=== PATIENT | female | born 1945 | race African-American/Black ===

== ENCOUNTER 2019-02-06 17:18 | Inpatient (IN) | payer MEDICARE, MEDICAID ==
[~2019-02-06 17:18] MED LIST: ISOVUE-370 76%-LOCM 1 ML ONE
[2019-02-06 17:35] LABS: #Basophils 0.1 thou/uL (0.0-0.2); #Eosinphils 0.2 thou/uL (0.0-0.7); #Lymphocytes 2.2 thou/uL (1.20-3.40); #Monocytes 0.3 thou/uL (0.11-0.59); #Neutrophils 2.5 thou/uL (1.40-6.50); %Basophils 1.2 % (0.0-1.0); %Eosinophils 3.6 % (0.0-10.0); %Monocytes 5.2 % (0.0-10.0); Hemoglobin 13.1 g/dL (12.0-16.0); Mean Corpuscular HGB CONC 31.7 g/dL (32.0-36.0); Mean Corpuscular Hemoglobin 29.1 pg (27.0-31.0); Mean Corpuscular Volume 91.9 fL (78.0-98.0); Mean Platelet Volume 8.3 fL (7.4-10.4); Platelet Count 226 thou/uL (130-400); Red Blood Cell (RBC) Count 4.49 mill/uL (4.20-5.40); White Blood Cell (WBC) Count 5.2 thou/uL (4.8-10.8)
[2019-02-06 17:41] LABS: INR-International Normal Ratio 0.9; PTT 27.8 SEC (22.9-36.1); Prothrombin Time 12.4 SEC (12.0-14.7)
--- NOTE | 2019-02-06 17:44 | CT ---
CT BRAIN WITHOUT CONTRAST: HISTORY:Stroke alert, dementia and hypertension, increased confusion, slurred speech COMPARISON:None FINDINGS: There are foci of decreased attenuation in the periventricular white matter, consistent with chronic small vessel ischemic disease. No evidence of acute infarct, hemorrhage, midline shift or abnormal extra-axial fluid collections is seen. The ventricular size is appropriate and the basilar cisterns are patent. The bony calvarium is intact. A cavum septum pellucidum et vergae is present. The visualized paranasal sinuses and mastoid air cells are well aerated. IMPRESSION: No CT evidence of acute intracranial process. Discussed over the telephone with ER physician Dr. Garza at 5:40 PM
[2019-02-06 17:48] LABS: ALT (SGPT) 21 U/L (8-55); AST (SGOT) 23 U/L (5-34); Albumin 4.1 g/dL (3.4-4.8); Alkaline Phosphatase 78 U/L (40-150); Anion Gap 12 mmol/L (10-20); BUN (Urea Nitrogen) 23 mg/dL (9.8-20.1); Bilirubin, Total 0.4 mg/dL (0.2-1.2); CK (CPK) 73 U/L (29-168); Calc. Creatinine Clearance 0 mL/min (70-130); Calcium 9.9 mg/dL (7.8-10.44); Carbon Dioxide 27 mmol/L (23-31); Chloride 107 mmol/L (98-107); Estimated GFR-MDRD 76; Globulin 3.1 g/dL (2.4-3.5); Glucose 77 mg/dL (83-110); Potassium 3.9 mmol/L (3.5-5.1); Protein, Total 7.2 g/dL (6.0-8.3); Sodium 142 mmol/L (136-145)
[2019-02-06 18:34] LABS: Bilirubin Negative (Negative); Blood, Urine Negative (Negative); Glucose, Urine (Dipstick) Negative (Negative); Leukocyte Negative (Negative); Nitrite Negative (Negative); Protein, Urine (Dipstick) Negative (Neg-Trace); Urobilinogen 0.2 mg/dL (Less than 2)
[2019-02-06 18:36] LABS: Clarity Hazy (Clear)
[2019-02-06 18:38] LABS: Bacteria/HPF 4+ HPF (None Seen); RBC/HPF 0-3 HPF (0-3); Squamous Epithelial Greater than 50 HPF (0-3)
--- NOTE | 2019-02-06 18:38 | RAD ---
PORTABLE CHEST: Date: 02-06-19 Time: 6:13 p.m. History: Slurred speech, Difficulty swallowing. FINDINGS: There is a left sided pacemaker device. The heart size is normal. No confluent areas of consolidation , pneumothoraces or pleural effusions are seen. IMPRESSION: No acute process. POS: [facility]
[2019-02-06] MEDS ORDERED: Aspirin Chewable 81 MG TAB ONE ×2 (19:40→19:41)
[2019-02-06] MEDS ORDERED: Aspirin 325 MG TAB ONE (19:40)
--- NOTE | 2019-02-06 20:05 | CT ---
CTA HEAD WITH IV CONTRAST AND 3D POST PROCESSING: CTA NECK WITH IV CONTRAST AND 3D POST PROCESSING: HISTORY: Stroke alert. Dementia. Hypertension. Increased confusion. Slurred speech. FINDINGS: Vascular calcifications are present. There is high-grade stenosis (about 80%) at the origin of the l eft ICA. There is mild stenosis (up to 30%) at the origin of the right ICA. There is good flow in t he intracranial vertebrobasilar and intercarotid artery systems, despite the presence of atherosclero tic plaque. No major branch occlusion or aneurysm formation is seen. IMPRESSION: High-grade stenosis (about 80%) in the left proximal internal carotid artery. Discussed over the telephone with ER physician, Dr. Garza, at 6:20 p.m. CODE YING POS: KENDRA
[2019-02-06 22:42] VITALS: BMI 29.1
[2019-02-07] MEDS ORDERED: Ondansetron ODT 4 MG TAB PO PRN (09:05)
[2019-02-07] MEDS ORDERED: Ondansetron PF 4 MG/2 ML Vial IVP PRN (09:05)
[2019-02-07] MEDS ORDERED: Acetaminophen 325 MG TAB PO PRN (09:05)
[2019-02-07] MEDS ORDERED: Calcium Carbonate 500 MG ChewTAB PO PRN (09:05)
[2019-02-07] MEDS ORDERED: Bisacodyl 10 MG SUPP PR PRN (09:05)
[2019-02-07] MEDS ORDERED: hydrALAZINE 20 MG/ML VIAL SLOW IVP PRN (09:10)
[2019-02-07] MEDS ORDERED: Enalaprilat Dihydrate 1.25 MG/ML VIAL SLOW IVP PRN (09:11)
--- NOTE | 2019-02-07 09:30 | HP ---
PRIMARY CARE: Dr. Mills. PRIMARY INTERNATIONAL TRADE TEACHER: Dr. Hays at [facility]. CHIEF COMPLAINT: Stroke-like symptoms. HISTORY OF PRESENT ILLNESS: The patient is a 73-year-old female with sick sinus syndrome status post MRI and compatible pacemaker, presented to the emergency room with the above complaints. Please note that not much information is available from the patient. History is obtained from the patient's daughter, Ms. Bryant as well as previous records were reviewed. The patient was brought into the emergency room with increased confusion, lethargy as well as facial droop. She was different from her baseline. Speech was slurred. Saliva was drooping from the angle of the mouth. The daughter did report focal weakness. However, her gait was unstable. She normally uses a walker at home. She does not take any antiplatelet agent on a daily basis. No recent fall, fever, chills, chest pain, shortness of breath, palpitations, headache, or seizures reported. In the emergency room, her temperature was 97.5, respiration of 16, pulse rate of 81, with a blood pressure of 134/85, and O2 saturation 96% on room air. CT scan of the brain was negative for acute findings. CT of the [place] of the head and neck showed 80% stenosis of the left proximal internal carotid artery. She received 325 mg aspirin in the emergency room. Her NIH score at this time is 8. PAST MEDICAL HISTORY: 1. Symptomatic bradycardia/sick sinus syndrome status post pacemaker. The original pacemaker was placed in 1999 at [facility]. The generator was replaced in November of [address] Hays at [facility]. 2. Recent hospitalization for choledocholithiasis requiring ERCP and cholecystectomy during the same admission when the pacemaker was replaced. It was found that the pacemaker was end of life when she was admitted for cholelithiasis. 3. Hypertension. 4. Anxiety, depression, and schizophrenia. PAST SURGICAL HISTORY: 1. Dual-chamber pacemaker, [employer]. 2. Laparoscopic cholecystectomy. 3. ERCP. 4. Hysterectomy. 5. Hernia repairs. SOCIAL HISTORY: The patient currently lives at home with her daughter. She is . No smoking, alcohol, or drug use. FAMILY HISTORY: Negative for premature coronary artery disease. REVIEW OF SYSTEMS: Cannot be reliably obtained from the patient due to current cognitive status. ALLERGIES: NO KNOWN DRUG ALLERGIES. CURRENT HOME MEDICATIONS: Amlodipine 5 mg daily, Benadryl 25 at bedtime, lisinopril 20 mg daily, and Claritin 10 mg daily. PHYSICAL EXAMINATION: VITAL SIGNS: In the emergency room, temperature 97.5, respirations 16, pulse 81, blood pressure of 134/85, and O2 saturation 96% on room air. GENERAL: 73-year-old female with stroke-like symptoms. She continues to have slurriness of speech along with facial droop. She is generally weak. She follows commands to some extent. HEENT: Head, atraumatic and normocephalic. Sclerae anicteric. Moist mucous membranes. No oral lesion. Facial droop noted. NECK: Supple. No JVD. There is questionable carotid bruit on the left. LUNGS: Clear to auscultation bilaterally. No wheezing, rales, or rhonchi. HEART: S1, S2 present. Regular rate and rhythm. No rubs or gallops. Pacemaker noted. ABDOMEN: Soft, nontender. Bowel sounds present. No rebound or guarding. EXTREMITIES: No edema or calf tenderness. NEUROLOGY: Cranial nerves 2 through 12 were normal on examination except for facial droop. There is diminished sensation on the right. She had weakness in bilateral lower extremity up to 4/5. Gait was not assessed. Reflexes were equivocal. PSYCHIATRY: As discussed above. SKIN: Warm and dry. LYMPH: No palpable lymph nodes in the neck. PERIPHERAL/VASCULAR: Radial pulses palpable bilaterally. MUSCULOSKELETAL: No joint swelling or tenderness. LABORATORY FINDINGS: WBC 5.2, hemoglobin 13.1, hematocrit 41.2, and platelet 226. PT, INR, PTT in normal range. Sodium 142, potassium 3.9, chloride 107, bicarb 27, BUN 23, and creatinine 0.27. Urinalysis showed 7 to 10 wbc's with 4+ bacteria, 15 of ketones. IMAGING STUDIES: Chest x-ray by my review was negative for infiltrate. CT scan of the brain by my review as discussed above. CT of the [place] as discussed above. EKG by my review showed paced rhythm. IMPRESSION: 1. Acute cerebrovascular accident, probably in the left MCA distribution. 2. Sick sinus syndrome, status post MRI compatible dual-chamber pacemaker. 3. Hypertension. 4. Anxiety. 5. Depression, mild, stable. 6. Toxic metabolic encephalopathy secondary to #1. 7. High-grade stenosis of the left internal carotid artery. 8. Suspected urinary tract infection. 9. Chronic kidney disease stage 2 with mild prerenal azotemia. 10. Dysarthria probably secondary to #1. PLAN: The patient will be monitored in the stroke unit. She will require 2 to 3 days for stabilization. She will require a stroke workup including MRI and echocardiogram. Neurology will be consulted. She has a MRI compatible dual-chamber pacemaker. We will start empiric antibiotics for UTI. Gentle IV hydration. We will hold antihypertensives for now for permissive hypertension. Stroke team consultation. Fasting lipid profile in a.m. Plan of care was discussed with the patient in detail. The plan was discussed with the daughter over the phone. CODE STATUS: Full code. Surrogate decision maker, the patient makes her own decision with the help of her daughter and sister. Job ID: [id number]
[2019-02-07] MEDS: Dextrose 5 %-0.45 % NaCl 1,000 ML IV SCH (11:44)
[2019-02-07] MEDS: cefTRIAXone\\ROCEPHIN 1 GM in Sodium Chloride 0.9% 100 ML IVPB SCH (11:45)
--- NOTE | 2019-02-07 15:07 | MRI ---
BRAIN MRI WITHOUT CONTRAST: Date: 02/07/19 INDICATION: Stroke. Slurred speech, confusion. Reference made to head CT from previous day. FINDINGS: There is a small focus of restricted diffusion involving the right thalamus, as well as the posterior right lentiform nucleus. There are also subtle areas of restriction seen within the bilateral centru m semiovale and gimenez radiata within deep white matter, which are superimposed upon moderate to dixie re chronic ischemic disease of the cerebral white matter. There are numerous remote cavitary lacunar infarctions seen bilaterally within the supratentorial brain. There is mild global atrophy. There is a cavum septum pellucidum et vergae. Skull base flow-voids are maintained. IMPRESSION: 1. Scattered foci of acute ischemia involving right side deep palomo nuclei, and bilateral deep white matter. The distribution of findings may be related to hypoperfusion or embolic phenomenon. 2. Extensive chronic microvascular ischemic disease. POS: [facility]
[2019-02-07] MEDS: Enoxaparin Sodium 40 MG/0.4 ML SYRINGE SC SCH (21:19)
[2019-02-07] MEDS: Famotidine 20 MG TAB PO SCH (21:20)
[2019-02-07] MEDS: Senokot S 8.6-50 MG TAB PO SCH (21:20)
[2019-02-07] MEDS: Atorvastatin Calcium 40 MG TAB PO SCH (21:21)
--- NOTE | 2019-02-07 22:53 | CON ---
DATE OF CONSULTATION: 02/07/2019 CONSULTING PHYSICIAN: Hospitalist Service. IMPRESSION: Extensive microvascular disease with secondary right-sided weakness and mild dementia with agitation. PLAN: 1. Start aspirin. 2. Echocardiogram. 3. Lipitor as ordered. 4. Seroquel 50 mg at night. HISTORY OF PRESENT ILLNESS: Ms. Morrison is a 73-year-old black female who reportedly developed some right-sided weakness back in November. She was seen at [facility] and evaluated. No diagnosis of stroke was made. She has been living at home with her daughter. Over the last week, she has noticed she has gotten a bit more agitated. She has been having some hallucinations. She has a history of paranoid schizophrenia. She got up yesterday and was having more difficulty walking than normal. She seemed a bit more confused. She was also having a bit more trouble with her speech. She was brought in for evaluation. MRI of the brain shows some scattered areas of microvascular ischemic change involving the right deep palomo nuclei and bilateral deep white matter regions. CT angiogram showed an 80% left internal carotid artery stenosis. CT of the brain did not show any hemorrhage. Her lab work was all unremarkable. Her vital signs have been stable and she has been afebrile. PAST HISTORY: Hypertension. ALLERGIES: NONE REPORTED. SOCIAL HISTORY: No tobacco or alcohol use. FAMILY HISTORY: Noncontributory. REVIEW OF SYSTEMS: Ten-system review of systems is otherwise negative. PHYSICAL EXAMINATION: GENERAL: She is a well-nourished, elderly woman, sitting up in bed, in no distress. VITAL SIGNS: Stable. She is afebrile. HEENT: Pupils are equal and reactive. Conjunctivae clear. Oropharynx clear. NECK: Supple. No lymphadenopathy. EXTREMITIES: No cyanosis or edema. NEUROLOGIC: She was awake and relatively cooperative. She had a little difficulty with comprehension and did not always follow commands appropriately. Her speech was quite low in volume, but seemed to be fluent. She had a right facial droop. There was some subtle right upper extremity weakness compared to the left. She had antigravity strength bilaterally. Plantar responses were downgoing. No abnormal movements were seen. Gait was not tested, but reportedly she can walk with the use of a walker. SUMMARY: This is a 73-year-old woman who shows some evidence of multifocal small ischemic injury, likely related to primary vasculopathy with multiple subclinical strokes occurring. I agree with antiplatelet therapy and a statin. Her echocardiogram is pending. There is a significantly reduced ejection fraction below 35%. I would consider anticoagulation. Job ID: [id number]
[2019-02-08] MEDS: Dextrose 5 %-0.45 % NaCl 1,000 ML IV SCH ×3 (01:50→18:51)
[2019-02-08 05:58] LABS: Phosphorus 4.2 mg/dL (2.3-4.7)
[2019-02-08 05:59] LABS: ALT (SGPT) 16 U/L (8-55); AST (SGOT) 18 U/L (5-34); Albumin 3.5 g/dL (3.4-4.8); Alkaline Phosphatase 66 U/L (40-150); Anion Gap 9 mmol/L (10-20); BUN (Urea Nitrogen) 16 mg/dL (9.8-20.1); Bilirubin, Total 0.4 mg/dL (0.2-1.2); Calc. Creatinine Clearance 98 mL/min (70-130); Calcium 9.8 mg/dL (7.8-10.44); Carbon Dioxide 31 mmol/L (23-31); Cardiac Risk 3.5 (Less than 4.5); Chloride 105 mmol/L (98-107); Cholesterol 185 mg/dl (< 200 Desired); Estimated GFR-MDRD Greater than 90; Globulin 2.7 g/dL (2.4-3.5); Glucose 97 mg/dL (83-110); HDL Cholesterol 53 mg/dL (>60 Neg Risk); LDL Cholesterol, Calculated 118 mg/dL; Magnesium 1.8 mg/dL (1.6-2.6); Potassium 3.8 mmol/L (3.5-5.1); Protein, Total 6.2 g/dL (6.0-8.3); Sodium 141 mmol/L (136-145); Triglycerides 69 mg/dL (Less than 150)
[2019-02-08 06:14] LABS: Eosinophils 3 % (0-10); Hemoglobin 11.7 g/dL (12.0-16.0); Lymphocytes 49 % (21-51); MDiff Complete? YES; Mean Corpuscular HGB CONC 31.6 g/dL (32.0-36.0); Mean Corpuscular Hemoglobin 29.5 pg (27.0-31.0); Mean Corpuscular Volume 93.4 fL (78.0-98.0); Monocytes 16 % (0-10); Neutrophil 29 % (42-75); Platelet Count 194 thou/uL (130-400); RBC Distribution Width 11.9 % (11.5-14.5); Reactive Lymphocytes 3 % (0-10); Red Blood Cell (RBC) Count 3.99 mill/uL (4.20-5.40); White Blood Cell (WBC) Count 3.9 thou/uL (4.8-10.8)
[2019-02-08 06:31] LABS: Folate (Folic Acid) 13.6 ng/mL (7.0-31.4)
[2019-02-08] MEDS ORDERED: Cyanocobalamin 1000 MCG/ML VIAL IM SCH (07:45)
[2019-02-08] MEDS: Multivit, Therapeutic 1 TAB PO SCH (08:42)
[2019-02-08] MEDS: Cyanocobalamin (Vitamin B-12) 1,000 MCG TAB PO SCH (08:42)
[2019-02-08] MEDS: Aspirin 325 mg Enteric Coated Tablet PO SCH (08:42)
[2019-02-08] MEDS: Famotidine 20 MG TAB PO SCH ×2 (08:42→22:29)
[2019-02-08] MEDS: Senokot S 8.6-50 MG TAB PO SCH ×2 (08:42→22:29)
[2019-02-08] MEDS ORDERED: Amlodipine 5 MG TAB PO SCH (10:45)
[2019-02-08] MEDS ORDERED: Lisinopril 5 MG TAB PO SCH (11:00)
[2019-02-08] MEDS: cefTRIAXone\\ROCEPHIN 1 GM in Sodium Chloride 0.9% 100 ML IVPB SCH (11:24)
[2019-02-08] MEDS: hydrALAZINE 20 MG/ML VIAL SLOW IVP PRN ×2 (11:25→11:37)
[2019-02-08] MEDS ORDERED: Enalaprilat Dihydrate 1.25 MG/ML VIAL SLOW IVP PRN (17:58)
--- NOTE | 2019-02-08 19:51 | PRG ---
DATE OF SERVICE: 02/08/2019 SUBJECTIVE: A 73-year-old female with sick sinus syndrome, status post pacemaker, hypertension, and schizophrenia, was brought in to the hospital with stroke-like symptoms. She underwent an MRI of the brain that showed scattered foci of acute ischemia involving the right side deep palomo nuclei and bilateral deep white matter. It also showed extensive chronic microvascular ischemic changes. She continues to have intermittent confusion. No new focal deficit reported. No chest pain, shortness of breath, or palpitations. She was started on Seroquel last night. REVIEW OF SYSTEMS: Cannot be reliably obtained from the patient due to current cognitive status. CURRENT MEDICATIONS: Reviewed. The patient has been started on aspirin. She is also on ceftriaxone for possible UTI . PHYSICAL EXAMINATION: VITAL SIGNS: Temperature 98.6, pulse 61, respirations of 16, blood pressure of 154/72, and O2 saturation 99% on room air. Intake of 1570, output 1100. GENERAL: A 73-year-old female in no apparent distress. Mentation slightly better. HEENT: Head, atraumatic and normocephalic. Sclerae anicteric. NECK: Supple. No JVD. No carotid bruit. LUNGS: Clear to auscultation bilaterally. No wheezing, rales, or rhonchi. HEART: S1, S2 present. Regular rate and rhythm. No rubs or gallops. ABDOMEN: Soft, nontender. Bowel sounds present. NEUROLOGY: Examination is unchanged. No new focal deficit. PSYCHIATRY: The patient is alert, awake, and pleasant at this time. She gets confused intermittently. LABORATORY FINDINGS: Vitamin B12 130, folic acid 13.6. Electrolytes in normal range. WBC 3.9 with hemoglobin 11.7. Urine culture showed greater than 100,000 mixed colonies. Echocardiogram showed ejection fraction 55% to 60% with mild tricuspid regurgitation, and trace mitral regurgitation. Next, telemetry monitoring by my review showed sinus rhythm. IMPRESSION: 1. Acute cerebrovascular accident involving the right side, right side deep palomo matter as well as bilateral deep white matter. 2. Extensive chronic microvascular ischemic changes. 3. Toxic metabolic encephalopathy number. 4. Urinary tract infection. 5. Hypertension. 6. Anxiety. 7. Depression, mild, stable. 8. Chronic kidney disease stage 2 with mild dehydration. 9. Dysarthria secondary to #1. 10. High-grade stenosis of the left internal carotid artery. Family declining any form of surgical intervention at this time. 11. Mild chronic anemia. 12. Dementia. 13. Vitamin B12 deficiency. PLAN: The will remain in the stroke unit. We will continue ceftriaxone for UTI. Continue aspirin. We will reduce IV fluid to 50. We will restart amlodipine as well as lisinopril at low dose. The patient has been started on Seroquel per Neurology. We will start vitamin B12 supplementation. Again, the family is declining any form of intervention for high-grade stenosis in the left proximal internal carotid artery. long term placement at discharge. Continue neuro checks. Plan was discussed with the daughter, An at the bedside, she stated understanding. Job ID: [id number]
[2019-02-08] MEDS: Atorvastatin Calcium 40 MG TAB PO SCH (22:29)
[2019-02-08] MEDS: Lisinopril 5 MG TAB PO SCH (22:29)
[2019-02-08] MEDS: Enoxaparin Sodium 40 MG/0.4 ML SYRINGE SC SCH (22:30)
[2019-02-09] MEDS: Cyanocobalamin (Vitamin B-12) 1,000 MCG TAB PO SCH (09:15)
[2019-02-09] MEDS: Aspirin 325 mg Enteric Coated Tablet PO SCH (09:15)
[2019-02-09] MEDS: Famotidine 20 MG TAB PO SCH ×2 (09:16→21:26)
[2019-02-09] MEDS: Amlodipine 5 MG TAB PO SCH (09:16)
[2019-02-09] MEDS: Senokot S 8.6-50 MG TAB PO SCH ×2 (09:16→21:26)
[2019-02-09] MEDS: Lisinopril 5 MG TAB PO SCH ×2 (09:18→21:26)
[2019-02-09] MEDS: Multivit, Therapeutic 1 TAB PO SCH (09:19)
[2019-02-09] MEDS: cefTRIAXone\\ROCEPHIN 1 GM in Sodium Chloride 0.9% 100 ML IVPB SCH (12:00)
--- NOTE | 2019-02-09 13:46 | PDOC.PN ---
- Subjective Encounter Start Date: 02/09/19 Encounter Start Time: 08:00 Patient seen and examined for Acute CVA. More calmer today. No new focal deficits. No new complaints. No overnight events - Objective Resuscitation Status - Order Detail: 02/07/19 09:05 Resuscitation Status Routine Resuscitation Status: FULL: Full Resuscitation MAR Reviewed: Yes Vital Signs & Weight: Vital Signs (12 hours) Temp Pulse Pulse Pulse Resp BP BP 02/09/19 11:35 98.5 F 60 18 02/09/19 10:29 62 60 152/97 H 02/09/19 09:18 60 161/91 H 02/09/19 09:16 60 161/91 H 02/09/19 08:00 02/09/19 07:48 97.7 F 60 18 02/09/19 04:00 97.9 F 60 16 BP BP Pulse Ox 02/09/19 11:35 152/97 H 95 02/09/19 10:29 162/85 H 02/09/19 09:18 02/09/19 09:16 02/09/19 08:00 95 02/09/19 07:48 160/103 H 100 02/09/19 04:00 161/88 H 98 Weight Admit Weight 175 lb 4.8 oz Weight 175 lb 4.8 oz I&O: 02/08/19 02/09/19 02/10/19 06:59 06:59 06:59 Intake Total 845 1810 Output Total 2100 Balance 845 -290 Result Diagrams: 02/08/19 05:12 02/08/19 05:12 EKG Reviewed by me: Yes (Tele SR) Phys Exam - Physical Examination Constitutional: NAD Respiratory: no wheezing, no rhonchi Cardiovascular: RRR, no rub Gastrointestinal: soft, non-tender, positive bowel sounds Musculoskeletal: no edema Neurological: moves all 4 limbs no new focal findings Dx/Plan - Plan DVT proph w/lovenox, DVT proph w/SCDs IMPRESSION: 1. Acute CVA involving the right side, right side deep palomo matter as well as bilateral deep white matter. 2. Extensive chronic microvascular ischemic changes. 3. Toxic metabolic encephalopathy number. 4. Urinary tract infection. 5. Vitamin B12 deficiency. 6. Anxiety. 7. Depression, mild, stable. 8. Chronic kidney disease stage 2 with mild dehydration. 9. Dysarthria secondary to #1. 10. High-grade stenosis of the left internal carotid artery. Family declining any form of surgical intervention at this time. 11. Mild chronic anemia. 12. Dementia. 13. Hypertension. PLAN: Continue IV ceftriaxone for UTI. Continue aspirin. Cont IV fluids due to poor appetite. Cont current dose of Amlodipine and lisinopril at low dose. On Seroquel per Neurology. Cont vitamin B12 supplementation. alf placement at discharge. DC in 24-48 hr if stable Review of Systems - Review of Systems Respiratory: negative: Cough, Dry, Shortness of Breath, Hemoptysis, SOB with Excertion, Pleuritic Pain, Sputum, Wheezing Cardiovascular: negative: chest pain, palpitations, orthopnea, paroxysmal nocturnal dyspnea, edema, light headedness, other Gastrointestinal: negative: Nausea, Vomiting, Abdominal Pain, Diarrhea, Constipation, Melena, Hematochezia, Other - Medications/Allergies Allergies/Adverse Reactions: Allergies Allergy/AdvReac Type Severity Reaction Status Date / Time No Known Allergies Allergy Verified 02/07/19 00:00 Medications: Current Medications Acetaminophen (Tylenol) 650 mg PO Q4H PRN PRN Reason: Headache/Fever/Mild Pain (1-3) Last Admin: 02/09/19 12:04 Dose: 650 mg Amlodipine Besylate (Norvasc) 5 mg PO DAILY [facility] Last Admin: 02/09/19 09:16 Dose: 5 mg Aspirin (Ecotrin) 325 mg PO DAILY [facility] Last Admin: 02/09/19 09:15 Dose: 325 mg Atorvastatin Calcium (Lipitor) 40 mg PO HS [facility] Last Admin: 02/08/19 22:29 Dose: 40 mg Bisacodyl (Dulcolax) 10 mg [place] DAILYPRN PRN PRN Reason: Constipation Calcium Carbonate (Tums) 1,000 mg PO Q4H PRN PRN Reason: Heartburn or Indigestion Last Admin: 02/08/19 11:24 Dose: 1,000 mg Cyanocobalamin (Vitamin B-12) 1,000 mcg PO DAILY [facility] Last Admin: 02/09/19 09:15 Dose: 1,000 mcg Enalaprilat (Vasotec) 1.25 mg SLOW IVP Q6H PRN PRN Reason: SBP Greater Than 180 Enoxaparin Sodium (Lovenox) 40 mg SC 2100 [facility] Last Admin: 02/08/19 22:30 Dose: 40 mg Famotidine (Pepcid) 20 mg PO BID [facility] Last Admin: 02/09/19 09:16 Dose: 20 mg Hydralazine HCl (Apresoline) 5 mg SLOW IVP Q4H PRN PRN Reason: SBP Greater Than 180 Last Admin: 02/08/19 08:57 Dose: 5 mg Hydralazine HCl (Apresoline) 10 mg SLOW IVP Q4H PRN PRN Reason: BP > 220/110 Last Admin: 02/08/19 11:37 Dose: 10 mg Ceftriaxone Sodium 1 gm/ (Sodium Chloride) 100 mls @ 200 mls/hr IVPB 1100 [facility] Last Admin: 02/09/19 12:00 Dose: 100 mls Dextrose/Sodium Chloride (D5 1/2 Ns) 1,000 mls @ 50 mls/hr IV .Q20H [facility] Last Admin: 02/08/19 18:51 Dose: 1,000 mls Lisinopril (Zestril) 5 mg PO BID [facility] Last Admin: 02/09/19 09:18 Dose: 5 mg Multivitamins (Theragran) 1 tab PO DAILY [facility] Last Admin: 02/09/19 09:19 Dose: 1 tab Ondansetron HCl (Zofran Odt) 4 mg PO Q6H PRN PRN Reason: Nausea/Vomiting Ondansetron HCl (Zofran) 4 mg IVP Q6H PRN PRN Reason: Nausea/Vomiting Quetiapine Fumarate (Seroquel) 50 mg PO QPM [facility] Last Admin: 02/08/19 22:27 Dose: 50 mg Senna/Docusate Sodium (Senokot S) 1 tab PO BID [facility] Last Admin: 02/09/19 09:16 Dose: 1 tab Sodium Chloride (Flush - Normal Saline) 10 ml IVF PRN PRN PRN Reason: Saline Flush
[2019-02-09] MEDS: Dextrose 5 %-0.45 % NaCl 1,000 ML IV SCH (14:27)
[2019-02-09] MEDS: Enoxaparin Sodium 40 MG/0.4 ML SYRINGE SC SCH (21:24)
[2019-02-09] MEDS: Atorvastatin Calcium 40 MG TAB PO SCH (21:25)
[2019-02-10] MEDS: Aspirin 325 mg Enteric Coated Tablet PO SCH (08:28)
[2019-02-10] MEDS: Famotidine 20 MG TAB PO SCH (08:28)
[2019-02-10] MEDS: Amlodipine 5 MG TAB PO SCH (08:28)
[2019-02-10] MEDS: Multivit, Therapeutic 1 TAB PO SCH (08:28)
[2019-02-10] MEDS: Senokot S 8.6-50 MG TAB PO SCH (08:28)
[2019-02-10] MEDS: Cyanocobalamin (Vitamin B-12) 1,000 MCG TAB PO SCH (08:28)
[2019-02-10] MEDS: Lisinopril 5 MG TAB PO SCH (08:29)
[2019-02-10] MEDS: Dextrose 5 %-0.45 % NaCl 1,000 ML IV SCH (10:48)
--- NOTE | 2019-02-10 11:20 | DIS ---
DATE OF ADMISSION: 02/07/2019 DATE OF DISCHARGE: 02/10/2019 DISCHARGE DISPOSITION: To [facility] facility. DISCHARGE MEDICATIONS: 1. Aspirin 325 mg daily. 2. Lipitor 40 mg at bedtime. 3. Seroquel 50 mg q.p.m. 4. Multivitamin 1 tablet daily. 5. Lisinopril 10 mg b.i.d., hold for systolic blood pressure less than 140. 6. Vitamin B12 of 1000 mcg daily. 7. Amlodipine 5 mg daily, hold for systolic blood pressure less than 130. 8. Tylenol as needed. 9. Claritin 10 mg daily. 10. Omnicef 300 mg twice a day for next 3 days. INPATIENT COMMUNITY ASSOCIATE: Neurology, Dr. Coronado. The patient was seen and examined on the day of discharge. Denies any new complaints. No new focal deficit. BRIEF HOSPITAL COURSE: The patient is a 73-year-old female with sick sinus syndrome, status post pacemaker, presented to the emergency room with stroke-like symptoms. CT scan of the brain in the emergency room showed chronic small-vessel ischemic changes. CT of the head and neck showed high-grade stenosis about 80% in the left proximal internal carotid artery. She was monitored in the stroke unit. Her MRI of the brain showed scattered foci of acute ischemia involving the right side deep palomo nuclei and bilateral deep white matter with extensive chronic microvascular ischemic changes. Echocardiogram showed left ventricular ejection fraction 55% to 60% with mild tricuspid regurgitation and trace mitral regurgitation. She was also found to have vitamin B12 deficiency with vitamin B12 level of 130. A folic acid was normal. A fasting lipid profile showed cholesterol 185, LDL 118, HDL of 53 with triglycerides of 69. She has been started on Seroquel 50 mg at bedtime by Neurology. The patient has been cleared by Neurology for discharge. FINAL DIAGNOSES: 1. Acute cerebrovascular accident as discussed above. 2. Vitamin B12 deficiency. 3. Toxic metabolic encephalopathy secondary to acute cerebrovascular accident. 4. Sick sinus syndrome, status post MRI, compatible dual-chamber pacemaker. 5. Hypertension. 6. Anxiety. 7. Depression, mild, stable. 8. High-grade stenosis of the left internal carotid artery. The patient and the family declined any form of surgical intervention for now. They were advised to follow up with Dr. Meadows as outpatient. 9. Urinary tract infection. Urine culture showed greater than 100,000 mixed skin and enteric samantha. 10. Chronic kidney disease stage 2 with mild prerenal azotemia. 11. Dysarthria. Plan was discussed with the patient and the family at the bedside. They stated understanding. Total time coordinating the discharge of this patient was 36 minutes. Job ID: [id number]
[2019-02-10] MEDS: cefTRIAXone\\ROCEPHIN 1 GM in Sodium Chloride 0.9% 100 ML IVPB SCH (12:18)
[2019-02-10 12:28] VITALS: BP 151/85; TEMP 98.2
== END 2019-02-10 13:08 | disposition swing bed, planned readmission (89) | DRG 64 ==
LOC: ERS 17:18 → 2SE 19:29 → OBSVTOIN 02-07 09:05
PROVIDERS: ADMIT Internal Medicine; ATTEND Internal Medicine
DX: I63.232 Cerebral infarction due to unspecified occlusion or stenosis of left carotid arteries (principal); G92 Toxic encephalopathy; N39.0 Urinary tract infection, site not specified; G81.91 Hemiplegia, unspecified affecting right dominant side; F03.91 Unspecified dementia, unspecified severity, with behavioral disturbance; F20.0 Paranoid schizophrenia; I49.5 Sick sinus syndrome; Z95.0 Presence of cardiac pacemaker; I08.1 Rheumatic disorders of both mitral and tricuspid valves; E53.8 Deficiency of other specified B group vitamins; F41.9 Anxiety disorder, unspecified; F32.9 Major depressive disorder, single episode, unspecified; I12.9 Hypertensive chronic kidney disease with stage 1 through stage 4 chronic kidney disease, or unspecified chronic kidney disease; N18.2 Chronic kidney disease, stage 2 (mild); R47.1 Dysarthria and anarthria; D63.1 Anemia in chronic kidney disease; Z91.81 History of falling; R29.708 NIHSS score 8; R47.81 Slurred speech; Z85.038 Personal history of other malignant neoplasm of large intestine; H26.9 Unspecified cataract; Z90.49 Acquired absence of other specified parts of digestive tract; Z90.710 Acquired absence of both cervix and uterus; R29.810 Facial weakness; R26.9 Unspecified abnormalities of gait and mobility; E86.0 Dehydration
CPT/HCPCS: 36415; 36416; 51701; 70450; 70496; 70498; 70551; 71045; 80053; 80061; 81003; 82550; 82607; 82746; 83735; 84100; 84484; 85025; 85610; 85730; 87086; 93005; 93306; A4353; J0360; J0696; J1650; J3490; Q9966

== ENCOUNTER 2019-11-27 21:01 | Inpatient (IN) | payer MEDICARE, MEDICAID ==
[2019-11-27] MEDS ORDERED: Labetalol HCl 100 MG/20 ML VIAL SLOW IVP PRN (23:32)
[2019-11-27] MEDS ORDERED: Acetaminophen 325 MG TAB PO PRN (23:41)
[2019-11-27] MEDS ORDERED: Acetaminophen 650 MG Suppository PR PRN (23:41)
[2019-11-27] MEDS ORDERED: Sodium Chloride 0.9% 1,000 ML IV SCH (23:45)
[2019-11-27] MEDS ORDERED: Aspirin 81 mg Enteric Coated Tablet PO SCH (23:59)
--- NOTE | 2019-11-27 23:59 | PDOC.HHP ---
Hospitalist HPI - History of Present Illness Right weakness, Slurred speech History of Present Illness: PCP: Dr. Mills The patient was alert and oriented to name and was able to follow commands. The H&P was taken from her daughter/caregiver, Marisabel via phone. The patient is a 74/F with PMH significant for HTN, HLD, CVA w/ right deficits, bradycardia w/ PM, schizophrenia that presents to the ER for the above complaint. The patient's daughter reports the patient has been intermittent spells of "not acting herself" since wednesday night. She reports that the patient was not eating, taking her medications by mouth starting wednesday evening. She also needed more assistance to stand and ambulate, which is "not normal for her". Wednesday, she reports that the patient was back to baseline. This repeated on wednesday evening and carried into Wednesday, so they decided to take the patient to the ER for evaluation. Denies any recent trauma or falls. Denies any fever or chills. Denies any changes to medications. The patient has history of illicit drug use, however, she has been caring for her mother "22/02" and does not think she could have accessed any drugs. Daughter reports history of significant carotid stenosis, declined surgery related to "only a 50% chance it works". ED Course: [facility] 16 EKG paced [address] brain no acute changes CXR negative for acute process Na 151 K 3.0 Glucose 118 LA 1.6 WBC 6.3 Hgb 12.8 Hct 41.8 UA unremarkable Given: ASA 300mg [place] Potassium 40mEQ po Allergies: NKDA Home Meds: 1. Atorvastatin 40mg po q hs 2. Amlodipine 5mg po q hs 3. Furosemide 20mg po q am 4. Quetiapine 100mg po q hs 5. Lisinopril 10mg po BID 6. 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 (right deficits) Psych: reports: Schizophrenia - Past Surgical History Past Surgical History: reports: Cholecystectomy, Hysterectomy, Hernia Repair, Other (Pacemaker for bradycardia) - Family History Family History: reports: cardiac disorder, cerebrovascular accident - Social History Smoking Status: Former smoker Alcohol: reports: None Drugs: reports: Other (former marijuana, cocaine) Living Situation: With Family Occupation: Lives in [place] with daughter Activity level: uses cane/walker - Exam General Appearance: NAD, awake alert General - other findings: follows commands, oriented to person ENT: normocephalic atraumatic Neck: supple, no JVD Heart: RRR, no murmur, no gallops, no rubs, normal peripheral pulses Respiratory: CTAB, no wheezes, no rales, no ronchi, no tachypnea Gastrointestinal: soft, non-tender, non-distended, normal bowel sounds, no guarding, no rigidity Extremities: no cyanosis, no edema Skin: no rashes Neurological: facial droop Neurological - other findings: right facial droop, RLE weakness 2/5 powerscale, slurred speech Psychiatric: flat affect Hospitalist Results - Labs Lab results: Troponin I 0.036 ng/mL (< 0.028) H 11/27/19 21:27 - EKG Interpretation EKG: Paced 62 bpm - Radiology Interpretation CT scan - head Status: report reviewed by me Chest x-ray Status: report reviewed by me Hospitalist H&P A/P - Problem (1) Right sided weakness Code(s): R53.1 - WEAKNESS Status: Acute Assessment and Plan: Admit to stroke unit, observation status Expected stay less than 2 midnights Daughter reports hx of significant carotid stenosis Obtain MRI brain, CTA neck and head, echocardiogram Check FLP, folate/B12, mag level and trend troponins Consult PT/OT/SENIOR NET PROGRAMMER Continue home dosing of ASA 81mg BID (2) Slurred speech Code(s): R47.81 - SLURRED SPEECH Status: Acute Assessment and Plan: Obtain MRI brain, CTA neck and head, echocardiogram Check FLP, folate/B12, mag level and trend troponins Consult PT/OT/SENIOR NET PROGRAMMER Continue home dosing of ASA 81mg BID (3) Dehydration Code(s): E86.0 - DEHYDRATION Status: Acute Assessment and Plan: Decreased oral intake for past several days per family Will gentle IV hydration Recheck BMP in am (4) Hypokalemia Code(s): E87.6 - HYPOKALEMIA Status: Acute Assessment and Plan: Mild 3.0 Given 40 mEq Will check mag level Will recheck in am (5) Hypernatremia Code(s): E87.0 - HYPEROSMOLALITY AND HYPERNATREMIA Status: Acute Assessment and Plan: Na 151 Will give gentle IV hydration Will recheck in am (6) HTN (hypertension) Code(s): I10 - ESSENTIAL (PRIMARY) HYPERTENSION Status: Chronic Assessment and Plan: Will start prn medications Permissive HTN Will hold home dose lisinopril and Amlodipine for now (7) HLD (hyperlipidemia) Code(s): E78.5 - HYPERLIPIDEMIA, UNSPECIFIED Status: Acute Assessment and Plan: Will restart atorvastatin home mediatioin pending SENIOR NET PROGRAMMER clearance. (8) History of CVA (cerebrovascular accident) Code(s): Z86.73 - PRSNL HX OF TIA (TIA), AND CEREB INFRC W/O RESID DEFICITS Status: Chronic Assessment and Plan: Right sided deficits, able to ambulate with standby assist as baseline - Plan Plan: Consult PT and OT Pepcid GI prophylaxis LMWH DVT prophylaxis Full Code JF is Marisabel at [phone] Solis.
[2019-11-28] MEDS ORDERED: Magnesium 2 GM/50 ML 2 GM in Premix Bag 1 BAG IVPB SCH (01:00)
[2019-11-28 01:12] LABS: Troponin I 0.039 ng/mL (< 0.028)
[2019-11-28 01:42] VITALS: BMI 27.2
[2019-11-28 04:05] LABS: #Basophils 0.1 thou/uL (0.0-0.2); #Eosinphils 0.2 thou/uL (0.0-0.7); #Lymphocytes 2.2 thou/uL (1.20-3.40); #Monocytes 0.4 thou/uL (0.11-0.59); #Neutrophils 3.3 thou/uL (1.40-6.50); %Basophils 0.9 % (0.0-1.0); %Eosinophils 3.2 % (0.0-10.0); %Lymphocytes 35.8 % (21.0-51.0); %Monocytes 6.5 % (0.0-10.0); %Neutrophils 53.6 % (42.0-75.0); Mean Corpuscular HGB CONC 31.6 g/dL (32.0-36.0); Mean Corpuscular Hemoglobin 31.2 pg (27.0-31.0); Mean Corpuscular Volume 98.7 fL (78.0-98.0); Mean Platelet Volume 9.2 fL (7.4-10.4); Platelet Count 236 thou/uL (130-400); RBC Distribution Width 11.1 % (11.5-14.5); Red Blood Cell (RBC) Count 4.16 mill/uL (4.20-5.40); White Blood Cell (WBC) Count 6.2 thou/uL (4.8-10.8)
[2019-11-28 04:20] LABS: Anion Gap 15 mmol/L (10-20); BUN (Urea Nitrogen) 23 mg/dL (9.8-20.1); Calc. Creatinine Clearance 88 mL/min (70-130); Calcium 9.5 mg/dL (7.8-10.44); Carbon Dioxide 27 mmol/L (23-31); Cardiac Risk 3.8 (Less than 4.5); Chloride 112 mmol/L (98-107); Cholesterol 144 mg/dl (< 200 Desired); Estimated GFR-MDRD Greater than 90; Glucose 88 mg/dL (83-110); HDL Cholesterol 38 mg/dL (>60 Neg Risk); LDL Cholesterol, Calculated 88 mg/dL; Magnesium 1.9 mg/dL (1.6-2.6); Potassium 3.2 mmol/L (3.5-5.1); Sodium 151 mmol/L (136-145); Triglycerides 92 mg/dL (Less than 150)
[2019-11-28 04:23] LABS: Troponin I 0.037 ng/mL (< 0.028)
[2019-11-28] MEDS ORDERED: Dextrose 5 %-0.45 % NaCl 1,000 ML IV SCH (06:15)
[2019-11-28] MEDS: Enoxaparin Sodium 40 MG/0.4 ML SYRINGE SC SCH (08:52)
[2019-11-28] MEDS: Famotidine 20 MG TAB PO SCH ×2 (08:52→21:45)
[2019-11-28] MEDS: Famotidine/PF 20 mg/2ml Vial SLOW IVP SCH ×2 (08:53→21:39)
[2019-11-28] MEDS: Aspirin 81 mg Enteric Coated Tablet PO SCH ×2 (10:44→21:39)
--- NOTE | 2019-11-28 12:20 | PDOC.HOSPP ---
- Subjective Encounter Date: 11/28/19 Encounter Time: 12:18 Subjective: Ms. Morrison was seen today in follow-up of right sided weakness and hypernatremia. She is still confused, and does not follow commands well. she mainly stares at you, she will squeeze your hand on commands,and answer some questions with a few words. - Objective Vital Signs & Weight: Vital Signs (12 hours) Temp Pulse Resp BP Pulse Ox 11/28/19 11:07 97.5 F L 60 18 148/69 H 100 11/28/19 07:08 98.6 F 61 14 141/68 H 100 11/28/19 04:00 98.7 F 60 18 143/65 H 99 11/28/19 00:53 98.7 F 61 18 185/81 H 100 Weight Weight 169 lb I&O: 11/27/19 11/28/19 11/29/19 06:59 06:59 06:59 Intake Total 10 Output Total 0 Balance 10 Result Diagrams: 11/28/19 03:52 11/28/19 03:52 Hospitalist ROS - Medication Medications: Active Medications Generic Name Dose Route Start Last Admin Trade Name Freq PRN Reason Stop Dose Admin Aspirin 81 mg 11/28/19 09:00 11/28/19 10:44 Ecotrin PO 81 mg BID YAIR Administration Enoxaparin Sodium 40 mg 11/28/19 09:00 11/28/19 08:52 Lovenox SC 40 mg 0900 YAIR Administration Famotidine 20 mg 11/28/19 09:00 11/28/19 08:53 Pepcid SLOW IVP 20 mg Q12HR YAIR Administration Famotidine 20 mg 11/28/19 09:00 11/28/19 08:52 Pepcid PO Not Given BID YAIR Sodium Chloride 1,000 mls @ 75 mls/hr 11/27/19 23:45 11/28/19 08:57 Normal Saline 0.9% IV 11/28/19 22:19 Not Given .[id number] YAIR Dextrose/Sodium Chloride 1,000 mls @ 50 mls/hr 11/28/19 06:15 11/28/19 06:25 D5 1/2 Ns IV 1,000 mls .Q20H YAIR Administration - Exam Eye: PERRL, anicteric sclera Heart: RRR, no murmur, no gallops, no rubs, normal peripheral pulses Respiratory: CTAB, no wheezes, no rales, no ronchi, normal chest expansion, no tachypnea, normal percussion Gastrointestinal: soft, non-tender, non-distended, normal bowel sounds, no palpable masses, no hepatomegaly Extremities: no cyanosis, no clubbing, no edema Hosp A/P (1) History of CVA (cerebrovascular accident) Code(s): Z86.73 - PRSNL HX OF TIA (TIA), AND CEREB INFRC W/O RESID DEFICITS Status: Chronic (2) Hypernatremia Code(s): E87.0 - HYPEROSMOLALITY AND HYPERNATREMIA Status: Acute (3) Right sided weakness Code(s): R53.1 - WEAKNESS Status: Acute (4) Slurred speech Code(s): R47.81 - SLURRED SPEECH Status: Acute (5) HTN (hypertension) Code(s): I10 - ESSENTIAL (PRIMARY) HYPERTENSION Status: Chronic - Plan * Metabolic encephalopathy- likely from hypernatremia, and possible CVA * Continue to hydrate, and will re-check her serum sodium later this afternoon * Right sided-weakness- await MRI, Echo and CTA * HTN- will re-start Amlodipine, but hold Lisinopril
[2019-11-28 13:46] LABS: Anion Gap 16 mmol/L (10-20); BUN (Urea Nitrogen) 16 mg/dL (9.8-20.1); Calc. Creatinine Clearance 95 mL/min (70-130); Calcium 9.2 mg/dL (7.8-10.44); Carbon Dioxide 23 mmol/L (23-31); Chloride 113 mmol/L (98-107); Estimated GFR-MDRD Greater than 90; Glucose 104 mg/dL (83-110); Potassium 3.6 mmol/L (3.5-5.1); Sodium 148 mmol/L (136-145)
--- NOTE | 2019-11-28 13:51 | CT ---
EXAM: CT ANGIOGRAM OF THE HEAD AND NECK: INDICATION: Unknown right-sided weakness. COMPARISON: 02/06/2019. TECHNIQUE: CT angiogram of the head and neck are performed in the axial plane. Three-dimensional reformatted irina ges are submitted for interpretation. FINDINGS: CTA OF THE HEAD WITH AND WITHOUT CONTRAST: NONCONTRAST HEAD CT: No parenchymal hemorrhage. No extraaxial hematoma. No midline shift. Basilar cisterns are patent. Not e is made of a cavum septum pellucidum and cavum Vergae. White matter hypodensities due to chronic small vessel ischemic changes. POSTCONTRAST CT OF BRAIN: Pathologic enhancement: No pathologic enhancement the brain. Postcontrast soft tissue neck CT: Sinuses: Adequate aeration visualized paranasal sinuses and mastoid air cells. Orbits: Bilateral ocular lenses are appropriately located. Both globes are intact. Retrobulbar fat is preserved. Symmetric attenuation the optic nerves and ocular rectus muscles. Salivary glands:Symmetric attenuation. Thyroid gland: Appropriate attenuation. Lymph nodes: No evidence of lymphadenopathy by size criteria. Paraspinal muscles: Symmetric attenuation of the sternocleidomastoid muscles. Appropriate attenuation of the paraspinal muscles. Cervical spine:Vertebral body height is maintained. No fracture. No significant central canal stenosi s or significant neural foraminal narrowing. Limited evaluation by technique. Upper mediastinum and lung apices: No acute abnormality. CTA OF THE NECK WITH CONTRAST: Aorta: Appropriate enhancement and luminal diameter. Right carotid artery: Appropriate enhancement and luminal diameter with regards to the origin of the carotid artery, innominate artery and common carotid artery. There is short segment mild narrowing of the right carotid bifurcation and proximal internal carotid artery due to calcified and noncalcifi ed plaque. No evidence of high-grade stenosis based upon NASCET criteria. Left carotid: Appropriate enhancement and luminal diameter of the origin of the left carotid artery, common carotid artery. There is mild narrowing due to noncalcified plaque. There is calcified plaque involving the left carotid bifurcation and proximal internal carotid artery. The degree of madhuri cification limits evaluation of the overall diameter of the lumen. There does appear to be short segment severe stenosis involving the left carotid bifurcation. The mid to distal left internal carot id artery have appropriate enhancement and luminal diameter. Subclavian arteries:Symmetric attenuation and enhancement. Vertebral arteries:Appropriate enhancement and luminal diameter involving both cervical vertebral art eries. Dominant right vertebral artery. Left vertebral artery origin emanates directly from the aortic arch. There does appear to be calcified plaque at the origin the left vertebral artery. CTA OF THE BRAIN: Intracranial internal carotid arteries:Atherosclerosis without significant luminal narrowing involvin g bilateral intracranial internal carotid arteries. Anterior circulation: Appropriate enhancement and luminal diameter of the A1 segments, M1 segments, p roximal A2 segments, and proximal MCA branches. Intracranial vertebral arteries: Appropriate enhancement and luminal diameter. Visualized PICA artery origins have appropriate enhancement and luminal diameter. Posterior circulation: Appropriate enhancement and luminal diameter of the basilar arteries and bilat eral P1 segments. IMPRESSION: 1. Short segment high-grade stenosis involving the left carotid bifurcation. 2. Short segment mild narrowing of the right carotid bifurcation and proximal internal carotid artery . 3. No significant stenosis at the level of the nez perce of [place]. 4. Left vertebral artery origin emanates from the aortic arch. There is calcification at the origin o f the left vertebral artery. Transcribed Date/Time: 11/28/2019 2:03 PM
[2019-11-28] MEDS ORDERED: Sodium Chloride 0.9% 1,000 ML IV SCH (17:30)
[2019-11-28] MEDS ORDERED: Sodium Chloride 0.9% 500 ML IV SCH (18:00)
[2019-11-28] MEDS ORDERED: Atorvastatin Calcium 40 MG TAB PO SCH (21:00)
[2019-11-28] MEDS: Amlodipine 5 MG TAB PO SCH (21:39)
[2019-11-29] MEDS ORDERED: Dextrose 5 %-0.45 % NaCl 1,000 ML IV SCH (00:39)
[2019-11-29 07:04] LABS: Anion Gap 12 mmol/L (10-20); BUN (Urea Nitrogen) 10 mg/dL (9.8-20.1); Calc. Creatinine Clearance 93 mL/min (70-130); Calcium 9.3 mg/dL (7.8-10.44); Carbon Dioxide 28 mmol/L (23-31); Chloride 113 mmol/L (98-107); Estimated GFR-MDRD Greater than 90; Glucose 98 mg/dL (83-110); Potassium 3.5 mmol/L (3.5-5.1); Sodium 149 mmol/L (136-145)
[2019-11-29] MEDS: Dextrose 5 %-0.45 % NaCl 1,000 ML IV SCH ×2 (08:56→21:55)
[2019-11-29] MEDS: Enoxaparin Sodium 40 MG/0.4 ML SYRINGE SC SCH (09:02)
[2019-11-29] MEDS: Famotidine 20 MG TAB PO SCH ×2 (09:02→20:34)
[2019-11-29] MEDS: Aspirin 81 mg Enteric Coated Tablet PO SCH ×2 (09:02→20:34)
[2019-11-29] MEDS: Famotidine/PF 20 mg/2ml Vial SLOW IVP SCH (10:33)
--- NOTE | 2019-11-29 13:26 | EKG ---
Test Reason : Blood Pressure : / mmHG Vent. Rate : 062 BPM Atrial Rate : 062 BPM P-R Int : 154 ms QRS Dur : 086 ms QT Int : 418 ms P-R-T Axes : 036 -32 -28 degrees QTc Int : 424 ms Electronic atrial pacemaker Left axis deviation T wave abnormality, consider inferior ischemia Abnormal ECG Confirmed by NESTOR HONEYCUTT ([id number]), mapping editor MACHO MULTANI ([id number]) on 11/29/2019 1:25:45 PM Referred By: Confirmed By:NESTOR HONEYCUTT
--- NOTE | 2019-11-29 15:24 | PDOC.HOSPP ---
- Subjective Encounter Date: 11/29/19 Encounter Time: 15:22 Subjective: Ms. Morrison was seen today in follow-up of encephalopathy, and hypernatremia. She is still essentially non-verbal. She will look at me, but will not respond. She will make a few groaning sounds. - Objective Vital Signs & Weight: Vital Signs (12 hours) Temp Pulse Pulse Resp BP BP Pulse Ox 11/29/19 11:03 97.4 F L 60 14 187/86 H 98 11/29/19 08:46 66 180/81 H 11/29/19 08:00 100 11/29/19 07:00 61 16 196/84 H 100 Weight Weight 169 lb I&O: 11/28/19 11/29/19 11/30/19 06:59 06:59 06:59 Intake Total 10 1240 Output Total 0 800 Balance 10 440 Result Diagrams: 11/28/19 03:52 11/29/19 06:25 Hospitalist ROS - Medication Medications: Active Medications Generic Name Dose Route Start Last Admin Trade Name Yrn PRN Reason Stop Dose Admin Amlodipine Besylate 5 mg 11/28/19 21:00 11/28/19 21:39 Norvasc PO 5 mg HS YAIR Administration Aspirin 81 mg 11/28/19 09:00 11/29/19 09:02 Ecotrin PO Not Given BID YAIR Atorvastatin Calcium 40 mg 11/28/19 21:00 11/28/19 21:39 Lipitor PO 40 mg HS YAIR Administration Enoxaparin Sodium 40 mg 11/28/19 09:00 11/29/19 09:02 Lovenox SC Not Given 0900 YAIR Famotidine 20 mg 11/28/19 09:00 11/29/19 09:02 Pepcid PO Not Given BID YAIR Dextrose/Sodium Chloride 1,000 mls @ 75 mls/hr 11/29/19 07:45 11/29/19 08:56 D5 1/2 Ns IV 1,000 mls .[id number] YAIR Administration - Exam Eye: PERRL Heart: RRR, no murmur, no gallops, no rubs, normal peripheral pulses Respiratory: CTAB, no wheezes, no rales, no ronchi, normal chest expansion Gastrointestinal: soft, non-tender, non-distended, normal bowel sounds, no palpable masses, no hepatomegaly Extremities: no cyanosis, no edema Hosp A/P (1) History of CVA (cerebrovascular accident) Code(s): Z86.73 - PRSNL HX OF TIA (TIA), AND CEREB INFRC W/O RESID DEFICITS Status: Chronic (2) Hypernatremia Code(s): E87.0 - HYPEROSMOLALITY AND HYPERNATREMIA Status: Acute (3) Right sided weakness Code(s): R53.1 - WEAKNESS Status: Acute (4) Slurred speech Code(s): R47.81 - SLURRED SPEECH Status: Acute (5) HTN (hypertension) Code(s): I10 - ESSENTIAL (PRIMARY) HYPERTENSION Status: Chronic - Plan * Metabolic encephalopathy- likely from hypernatremia, and possible CVA- she was unable to lay flat for the MRI * May consider CT scan of the brain in the AM, if she is not much improved * Hypernatremia- a bit better, will continue IV fluids * Echo and CTA results noted * HTN- blood pressure is elevated- can safely re-start Lisinopril at this time * Re-assess in the AM
[2019-11-29] MEDS: Lisinopril 10 MG TAB PO SCH (20:33)
[2019-11-29] MEDS: Amlodipine 5 MG TAB PO SCH (20:33)
[2019-11-29] MEDS: Atorvastatin Calcium 40 MG TAB PO SCH (20:33)
[2019-11-30] MEDS: hydrALAZINE 20 MG/ML VIAL SLOW IVP PRN ×2 (00:56→09:56)
[2019-11-30 04:58] LABS: Anion Gap 8 mmol/L (10-20); BUN (Urea Nitrogen) 7 mg/dL (9.8-20.1); Calc. Creatinine Clearance 101 mL/min (70-130); Calcium 9.3 mg/dL (7.8-10.44); Carbon Dioxide 31 mmol/L (23-31); Chloride 109 mmol/L (98-107); Estimated GFR-MDRD Greater than 90; Glucose 115 mg/dL (83-110); Sodium 145 mmol/L (136-145)
[2019-11-30] MEDS ORDERED: Potassium Chloride 20 MEQ TAB PO SCH (07:15)
[2019-11-30] MEDS: Lisinopril 10 MG TAB PO SCH ×2 (08:52→20:47)
[2019-11-30] MEDS: Aspirin 81 mg Enteric Coated Tablet PO SCH ×2 (08:54→20:47)
[2019-11-30] MEDS: Enoxaparin Sodium 40 MG/0.4 ML SYRINGE SC SCH (08:56)
[2019-11-30] MEDS: Famotidine 20 MG TAB PO SCH ×2 (08:57→20:46)
[2019-11-30] MEDS: Dextrose 5 %-0.45 % NaCl 1,000 ML IV SCH (09:58)
--- NOTE | 2019-11-30 13:20 | PDOC.HOSPP ---
- Subjective Encounter Date: 11/30/19 Encounter Time: 13:17 Subjective: Ms. Morrison was seen today in follow-up of encephalopathy. She still does not talk much, but w2as slightly more interactive than before. - Objective Vital Signs & Weight: Vital Signs (12 hours) Temp Pulse Pulse Pulse Resp BP BP 11/30/19 11:32 99 F 72 18 11/30/19 09:56 60 186/84 H 11/30/19 09:27 65 60 176/87 H 11/30/19 08:52 176/84 H 11/30/19 08:46 11/30/19 07:52 98.3 F 77 17 11/30/19 05:42 11/30/19 05:22 91 196/92 H 11/30/19 05:15 11/30/19 03:30 77 BP BP Pulse Ox 11/30/19 11:32 158/70 H 97 11/30/19 09:56 11/30/19 09:27 186/84 H 11/30/19 08:52 11/30/19 08:46 98 11/30/19 07:52 176/84 H 98 11/30/19 05:42 151/72 H 11/30/19 05:22 11/30/19 05:15 196/92 H 11/30/19 03:30 174/79 H Weight Weight 169 lb I&O: 11/29/19 11/30/19 12/01/19 06:59 06:59 06:59 Intake Total 1240 974 Output Total 800 700 Balance 440 274 Result Diagrams: 11/28/19 03:52 11/30/19 04:15 Hospitalist ROS - Medication Medications: Active Medications Generic Name Dose Route Start Last Admin Trade Name Freq PRN Reason Stop Dose Admin Amlodipine Besylate 5 mg 11/28/19 21:00 11/29/19 20:33 Norvasc PO 5 mg HS YAIR Administration Aspirin 81 mg 11/28/19 09:00 11/30/19 08:54 Ecotrin PO 81 mg BID YAIR Administration Atorvastatin Calcium 40 mg 11/29/19 21:00 11/29/19 20:33 Lipitor PO 40 mg HS YAIR Administration Enoxaparin Sodium 40 mg 11/28/19 09:00 11/30/19 08:56 Lovenox SC Not Given 0900 YAIR Famotidine 20 mg 11/28/19 09:00 11/30/19 08:57 Pepcid PO 20 mg BID YAIR Administration Hydralazine HCl 10 mg 11/27/19 23:32 11/30/19 09:56 Apresoline SLOW IVP 10 mg Q4H PRN Administration BP > 220/110 Dextrose/Sodium Chloride 1,000 mls @ 75 mls/hr 11/29/19 07:45 11/30/19 09:58 D5 1/2 Ns IV 1,000 mls .[id number] YAIR Administration Labetalol HCl 20 mg 11/27/19 23:32 11/30/19 05:22 Normodyne SLOW IVP 20 mg Q1H PRN Administration BP > 220/110 Lisinopril 10 mg 11/29/19 21:00 11/30/19 08:52 Zestril PO 10 mg BID YAIR Administration Quetiapine Fumarate 100 mg 11/29/19 21:00 11/29/19 20:34 Seroquel PO 100 mg QPM YAIR Administration Sodium Chloride 10 ml 11/27/19 23:32 11/30/19 09:56 Flush - Normal Saline IVF 10 ml PRN PRN Administration Saline Flush - Exam Eye: PERRL Heart: RRR, no murmur, no gallops, no rubs, normal peripheral pulses Respiratory: CTAB, no wheezes, no rales, no ronchi, normal chest expansion, no tachypnea, normal percussion Gastrointestinal: soft, non-tender, non-distended, normal bowel sounds, no palpable masses, no hepatomegaly Extremities: no cyanosis, no edema Hosp A/P (1) History of CVA (cerebrovascular accident) Code(s): Z86.73 - PRSNL HX OF TIA (TIA), AND CEREB INFRC W/O RESID DEFICITS Status: Chronic (2) Hypernatremia Code(s): E87.0 - HYPEROSMOLALITY AND HYPERNATREMIA Status: Acute (3) Right sided weakness Code(s): R53.1 - WEAKNESS Status: Acute (4) Slurred speech Code(s): R47.81 - SLURRED SPEECH Status: Acute (5) HTN (hypertension) Code(s): I10 - ESSENTIAL (PRIMARY) HYPERTENSION Status: Chronic - Plan * Metabolic encephalopathy- hypernatremia has improved, but she is still a bit lethargic and slow to respond to answer questions * Will proceed with CT scan of the brain * Hypernatremia- better * HTN- blood pressure is elevated- Lisinopril has been re-started, and blood pressure is trending down
--- NOTE | 2019-11-30 14:23 | CT ---
Exam: Head CT without contrast HISTORY: Confusion. Increased lethargy and fatigue. COMPARISON: 11/27/2019, 11/28/2019 FINDINGS: Hemorrhage: No intraparenchymal hemorrhage or extra-axial hematoma. Brain parenchyma: Cortical palomo-white matter differentiation is preserved. No mass effect or midline shift. Basilar cisterns are patent.Stable white matter hypodensities due to chronic small vessel ischemic change. Stable hypodensity in bilateral thalami. Ventricular system: No hydrocephalus. Stable cavum septum pellucidum and cavum verge. Calvarium: Intact. Sinuses and mastoid air cells: Adequate aeration. IMPRESSION: 1. No significant interval change. 2. No acute intracranial process.
[2019-11-30] MEDS: Atorvastatin Calcium 40 MG TAB PO SCH (20:47)
[2019-11-30] MEDS: Amlodipine 5 MG TAB PO SCH (20:47)
[2019-12-01] MEDS: Dextrose 5 %-0.45 % NaCl 1,000 ML IV SCH ×2 (00:18→13:14)
[2019-12-01 04:47] LABS: Anion Gap 12 mmol/L (10-20); BUN (Urea Nitrogen) 7 mg/dL (9.8-20.1); Calc. Creatinine Clearance 95 mL/min (70-130); Carbon Dioxide 24 mmol/L (23-31); Chloride 109 mmol/L (98-107); Estimated GFR-MDRD Greater than 90; Glucose 126 mg/dL (83-110); Potassium 3.5 mmol/L (3.5-5.1); Sodium 141 mmol/L (136-145)
[2019-12-01] MEDS: Enoxaparin Sodium 40 MG/0.4 ML SYRINGE SC SCH (08:46)
[2019-12-01] MEDS: Amlodipine 5 MG TAB PO SCH ×2 (08:46→20:18)
[2019-12-01] MEDS: Famotidine 20 MG TAB PO SCH ×2 (08:47→20:17)
[2019-12-01] MEDS: Aspirin 81 mg Enteric Coated Tablet PO SCH (08:47)
[2019-12-01] MEDS: Lisinopril 10 MG TAB PO SCH ×2 (08:47→20:17)
[2019-12-01] MEDS ORDERED: Dextrose 5 %-0.45 % NaCl 1,000 ML IV SCH (14:16)
--- NOTE | 2019-12-01 14:19 | PDOC.HOSPP ---
- Subjective Encounter Date: 12/01/19 Encounter Time: 14:17 Subjective: Ms. Morrison was seen today in follow-up. She is much more alert, and will respond with a few short phrases. She was able to tell me " your hands are cold " when I tried to get her to squeeze my hands. She also got an irritated expression when i was asker her questions. - Objective Vital Signs & Weight: Vital Signs (12 hours) Temp Pulse Pulse Resp BP BP BP 12/01/19 11:24 98.6 F 60 20 12/01/19 09:27 60 127/67 12/01/19 08:47 142/71 H 12/01/19 08:46 77 142/71 H 12/01/19 07:10 99.1 F 77 20 142/71 H 12/01/19 04:00 98.8 F 77 18 121/65 BP Pulse Ox 12/01/19 11:24 152/68 H 98 12/01/19 09:27 12/01/19 08:47 12/01/19 08:46 12/01/19 07:10 98 12/01/19 04:00 97 Weight Weight 169 lb I&O: 11/30/19 12/01/19 12/02/19 06:59 06:59 06:59 Intake Total 974 1420 600 Output Total 700 350 Balance 274 1070 600 Result Diagrams: 11/28/19 03:52 12/01/19 04:10 Hospitalist ROS - Medication Medications: Active Medications Generic Name Dose Route Start Last Admin Trade Name Freq PRN Reason Stop Dose Admin Acetaminophen 650 mg 11/27/19 23:41 12/01/19 08:47 Tylenol PO 650 mg Q4H PRN Administration Headache/Fever/Mild Pain (1-3) Amlodipine Besylate 5 mg 11/30/19 21:00 12/01/19 08:46 Norvasc PO 5 mg BID YAIR Administration Aspirin 81 mg 11/28/19 09:00 12/01/19 08:47 Ecotrin PO 81 mg BID YAIR Administration Atorvastatin Calcium 40 mg 11/29/19 21:00 11/30/19 20:47 Lipitor PO 40 mg HS YAIR Administration Enoxaparin Sodium 40 mg 11/28/19 09:00 12/01/19 08:46 Lovenox SC 40 mg 0900 YAIR Administration Famotidine 20 mg 11/28/19 09:00 12/01/19 08:47 Pepcid PO 20 mg BID YAIR Administration Hydralazine HCl 10 mg 11/27/19 23:32 11/30/19 09:56 Apresoline SLOW IVP 10 mg Q4H PRN Administration BP > 220/110 Labetalol HCl 20 mg 11/27/19 23:32 11/30/19 05:22 Normodyne SLOW IVP 20 mg Q1H PRN Administration BP > 220/110 Lisinopril 10 mg 11/29/19 21:00 12/01/19 08:47 Zestril PO 10 mg BID YAIR Administration Potassium Chloride 40 meq 12/01/19 08:00 12/01/19 08:46 Klor-Con PO 40 meq QAM-WM YAIR Administration Quetiapine Fumarate 100 mg 11/29/19 21:00 11/30/19 20:47 Seroquel PO 100 mg QPM YAIR Administration Sodium Chloride 10 ml 11/27/19 23:32 11/30/19 09:56 Flush - Normal Saline IVF 10 ml PRN PRN Administration Saline Flush - Exam Eye: PERRL Heart: RRR, no murmur, no gallops, no rubs, normal peripheral pulses Respiratory: CTAB, no wheezes, no rales, no ronchi, normal chest expansion, no tachypnea, normal percussion Gastrointestinal: soft, non-tender, non-distended, normal bowel sounds, no palpable masses, no hepatomegaly Extremities: no cyanosis, no edema Neurological: facial droop (right facial droop, + dysphagia) Hosp A/P (1) History of CVA (cerebrovascular accident) Code(s): Z86.73 - PRSNL HX OF TIA (TIA), AND CEREB INFRC W/O RESID DEFICITS Status: Chronic (2) Hypernatremia Code(s): E87.0 - HYPEROSMOLALITY AND HYPERNATREMIA Status: Acute (3) Right sided weakness Code(s): R53.1 - WEAKNESS Status: Acute (4) Slurred speech Code(s): R47.81 - SLURRED SPEECH Status: Acute (5) HTN (hypertension) Code(s): I10 - ESSENTIAL (PRIMARY) HYPERTENSION Status: Chronic (6) Schizophrenia Code(s): F20.9 - SCHIZOPHRENIA, UNSPECIFIED Status: Chronic - Plan * Metabolic encephalopathy- improved, but she is still not eating much , and her RN says that she had to be fed, and she was pocketing food * She has not been able to do an MRI due to inability to lay flat. After discussing with her daughter what her baseline functioning was, it is apparent that she most likely suffered another CVA. Regarding the dysphagia, she came in with hypernatremia, and dehydration, and even with assistance she may not be able to keep up with her nutritional requirements, and adequate fluid intake. Will get 3 day colorie counts, and if she does not do well, then will need to decide on either PEG tube placement, or pleasure feeds and Palliative care. This was discussed with the patient's daughter Marisabel today. * Hypernatremia- better- improved. will change fluids to KVO and continue to monitor * HTN- blood pressure is improving * Schizophrenia- stable- continue Seroquel ( I asked her daughter about her medications, and she tells me Seroquel is her only medication. She also tells me the symptoms she is exhibiting now is not like her Schizophrenia. She says the patient has never had catatonia, and usually when her schizophrenia is active she talks to herself, and talks a lot, and by be argumentative). * Discussed with the patient's daughter- she would like Rehab or penitentiary for her mother if she does not return back to baseline.
[2019-12-01] MEDS: Aggrenox 200-25mg CAP PO SCH (20:17)
[2019-12-01] MEDS: Atorvastatin Calcium 40 MG TAB PO SCH (20:17)
[2019-12-02] MEDS: Enoxaparin Sodium 40 MG/0.4 ML SYRINGE SC SCH (09:07)
[2019-12-02] MEDS: Amlodipine 5 MG TAB PO SCH ×2 (09:08→20:00)
[2019-12-02] MEDS: Famotidine 20 MG TAB PO SCH ×2 (09:08→19:59)
[2019-12-02] MEDS: Lisinopril 10 MG TAB PO SCH ×2 (09:08→19:59)
[2019-12-02] MEDS: Aggrenox 200-25mg CAP PO SCH (09:08)
--- NOTE | 2019-12-02 13:35 | PDOC.HOSPP ---
- Subjective Encounter Date: 12/02/19 Encounter Time: 09:15 Subjective: pt up in bed follows minimal command. - Objective Vital Signs & Weight: Vital Signs (12 hours) Temp Pulse Pulse Resp BP BP BP 12/02/19 11:30 97.6 F 63 16 130/60 12/02/19 10:01 69 137/66 12/02/19 09:08 60 175/81 H 12/02/19 08:10 12/02/19 07:16 98.4 F 60 16 175/81 H 12/02/19 03:38 97 F L 72 18 150/70 H Pulse Ox 12/02/19 11:30 100 12/02/19 10:01 12/02/19 09:08 12/02/19 08:10 97 12/02/19 07:16 97 12/02/19 03:38 99 Weight Admit Weight 169 lb Weight 169 lb I&O: 12/01/19 12/02/19 12/03/19 06:59 06:59 06:59 Intake Total 1420 900 600 Output Total 350 Balance 1070 900 600 Result Diagrams: 11/28/19 03:52 12/01/19 04:10 Hospitalist ROS - Review of Systems Other: unable to obtain - Medication Medications: Active Medications Generic Name Dose Route Start Last Admin Trade Name Freq PRN Reason Stop Dose Admin Acetaminophen 650 mg 11/27/19 23:41 12/01/19 08:47 Tylenol PO 650 mg Q4H PRN Administration Headache/Fever/Mild Pain (1-3) Amlodipine Besylate 5 mg 11/30/19 21:00 12/02/19 09:08 Norvasc PO 5 mg BID YAIR Administration Atorvastatin Calcium 40 mg 11/29/19 21:00 12/01/19 20:17 Lipitor PO 40 mg HS YAIR Administration Dipyridamole/Aspirin 1 cap 12/01/19 21:00 12/02/19 09:08 Aggrenox PO 1 cap BID YAIR Administration Enoxaparin Sodium 40 mg 11/28/19 09:00 12/02/19 09:07 Lovenox SC 40 mg 0900 YAIR Administration Famotidine 20 mg 11/28/19 09:00 12/02/19 09:08 Pepcid PO 20 mg BID YAIR Administration Hydralazine HCl 10 mg 11/27/19 23:32 11/30/19 09:56 Apresoline SLOW IVP 10 mg Q4H PRN Administration BP > 220/110 Labetalol HCl 20 mg 11/27/19 23:32 11/30/19 05:22 Normodyne SLOW IVP 20 mg Q1H PRN Administration BP > 220/110 Lisinopril 10 mg 11/29/19 21:00 12/02/19 09:08 Zestril PO 10 mg BID YAIR Administration Potassium Chloride 40 meq 12/01/19 08:00 12/02/19 09:08 Klor-Con PO 40 meq QAM-WM YAIR Administration Quetiapine Fumarate 100 mg 11/29/19 21:00 12/01/19 20:18 Seroquel PO 100 mg QPM YAIR Administration Sodium Chloride 10 ml 11/27/19 23:32 11/30/19 09:56 Flush - Normal Saline IVF 10 ml PRN PRN Administration Saline Flush - Exam Neck: negative: supple, symmetric, no JVD, no thyromegaly, no lymphadenopathy, no carotid bruit, JVD Heart: negative: RRR, no murmur, no gallops, no rubs, normal peripheral pulses, irregular, diminshed peripheral pulses, murmur present, II/IV, III/IV Respiratory: negative: CTAB, no wheezes, no rales, no ronchi, normal chest expansion, no tachypnea, normal percussion, rales, rhonchi, tachypneic, wheezes Gastrointestinal: negative: soft, non-tender, non-distended, normal bowel sounds , no palpable masses, no hepatomegaly, no splenomegaly, no bruit, no guarding, no rigidity, tender to palpation, distended, diminished bowl sounds, voluntary guarding Extremities: 1+ LE edema Neurological - other findings: right side weakness noted, pt able to move left side Hosp A/P (1) Right sided weakness Code(s): R53.1 - WEAKNESS Status: Acute (2) HLD (hyperlipidemia) Code(s): E78.5 - HYPERLIPIDEMIA, UNSPECIFIED Status: Acute (3) Hypernatremia Code(s): E87.0 - HYPEROSMOLALITY AND HYPERNATREMIA Status: Acute (4) Slurred speech Code(s): R47.81 - SLURRED SPEECH Status: Acute (5) HTN (hypertension) Code(s): I10 - ESSENTIAL (PRIMARY) HYPERTENSION Status: Chronic (6) History of CVA (cerebrovascular accident) Code(s): Z86.73 - PRSNL HX OF TIA (TIA), AND CEREB INFRC W/O RESID DEFICITS Status: Chronic (7) HTN (hypertension) Code(s): I10 - ESSENTIAL (PRIMARY) HYPERTENSION Status: Chronic - Plan pt unable to lie flat per nursing staff for her mri. she does have right sided weakness. she was on asa. will start her on asa/plavix/and continue statin. per nursing she is eating today. will keep evaluating her if she continues to eat then no need for peg.
[2019-12-02] MEDS: Atorvastatin Calcium 40 MG TAB PO SCH (20:01)
[2019-12-02 20:37] LABS: Anion Gap 9 mmol/L (10-20); BUN (Urea Nitrogen) 9 mg/dL (9.8-20.1); Calc. Creatinine Clearance 112 mL/min (70-130); Carbon Dioxide 29 mmol/L (23-31); Chloride 108 mmol/L (98-107); Estimated GFR-MDRD Greater than 90; Glucose 110 mg/dL (83-110); Sodium 142 mmol/L (136-145)
[2019-12-03 05:14] LABS: Anion Gap 11 mmol/L (10-20); BUN (Urea Nitrogen) 7 mg/dL (9.8-20.1); Calc. Creatinine Clearance 114 mL/min (70-130); Calcium 9.3 mg/dL (7.8-10.44); Carbon Dioxide 27 mmol/L (23-31); Chloride 107 mmol/L (98-107); Estimated GFR-MDRD Greater than 90; Glucose 110 mg/dL (83-110); Potassium 3.9 mmol/L (3.5-5.1); Sodium 141 mmol/L (136-145)
[2019-12-03] MEDS: Enoxaparin Sodium 40 MG/0.4 ML SYRINGE SC SCH (09:59)
[2019-12-03] MEDS: Famotidine 20 MG TAB PO SCH ×2 (10:00→21:19)
[2019-12-03] MEDS: Aspirin 81 mg Enteric Coated Tablet PO SCH (10:00)
[2019-12-03] MEDS: Clopidogrel Bisulfate 75 MG TAB PO SCH (10:01)
[2019-12-03] MEDS: Amlodipine 5 MG TAB PO SCH ×2 (10:01→21:19)
[2019-12-03] MEDS: Lisinopril 10 MG TAB PO SCH ×2 (10:02→21:20)
--- NOTE | 2019-12-03 19:38 | PDOC.HOSPP ---
- Subjective Encounter Date: 12/03/19 Encounter Time: 09:45 Subjective: pt up in bed does not follow commands today - Objective Vital Signs & Weight: Vital Signs (12 hours) Temp Pulse Pulse Pulse Resp BP BP 12/03/19 15:17 98.0 F 72 12 12/03/19 14:19 62 65 118/57 L 12/03/19 11:19 98.7 F 78 18 12/03/19 10:52 12/03/19 10:02 182/80 H 12/03/19 10:01 83 182/80 H 12/03/19 07:36 98.7 F 83 16 BP BP Pulse Ox 12/03/19 15:17 139/63 99 12/03/19 14:19 139/65 12/03/19 11:19 97 12/03/19 10:52 140/63 12/03/19 10:02 12/03/19 10:01 12/03/19 07:36 153/86 H 96 Weight Admit Weight 169 lb Weight 169 lb I&O: 12/02/19 12/03/19 12/04/19 06:59 06:59 06:59 Intake Total 900 900 510 Output Total 650 Balance 900 900 -140 Result Diagrams: 11/28/19 03:52 12/03/19 04:38 Hospitalist ROS - Review of Systems Other: unable to obtain - Medication Medications: Active Medications Generic Name Dose Route Start Last Admin Trade Name Freq PRN Reason Stop Dose Admin Acetaminophen 650 mg 11/27/19 23:41 12/01/19 08:47 Tylenol PO 650 mg Q4H PRN Administration Headache/Fever/Mild Pain (1-3) Amlodipine Besylate 5 mg 11/30/19 21:00 12/03/19 10:01 Norvasc PO 5 mg BID YAIR Administration Aspirin 81 mg 12/03/19 09:00 12/03/19 10:00 Ecotrin PO 81 mg DAILY YAIR Administration Atorvastatin Calcium 40 mg 11/29/19 21:00 12/02/19 20:01 Lipitor PO 40 mg HS YAIR Administration Clopidogrel Bisulfate 75 mg 12/03/19 09:00 12/03/19 10:01 Plavix PO 75 mg DAILY YAIR Administration Enoxaparin Sodium 40 mg 11/28/19 09:00 12/03/19 09:59 Lovenox SC 40 mg 0900 YAIR Administration Famotidine 20 mg 11/28/19 09:00 12/03/19 10:00 Pepcid PO 20 mg BID YAIR Administration Hydralazine HCl 10 mg 11/27/19 23:32 11/30/19 09:56 Apresoline SLOW IVP 10 mg Q4H PRN Administration BP > 220/110 Dextrose/Sodium Chloride 1,000 mls @ 0 mls/hr 12/01/19 14:16 12/03/19 01:18 D5 1/2 Ns IV 1,000 mls .Q0M YAIR Administration KVO Labetalol HCl 20 mg 11/27/19 23:32 11/30/19 05:22 Normodyne SLOW IVP 20 mg Q1H PRN Administration BP > 220/110 Lisinopril 10 mg 11/29/19 21:00 12/03/19 10:02 Zestril PO 10 mg BID YAIR Administration Potassium Chloride 40 meq 12/01/19 08:00 12/03/19 10:00 Klor-Con PO 40 meq QAM-WM YAIR Administration Quetiapine Fumarate 100 mg 11/29/19 21:00 12/02/19 19:59 Seroquel PO 100 mg QPM YAIR Administration Sodium Chloride 10 ml 11/27/19 23:32 11/30/19 09:56 Flush - Normal Saline IVF 10 ml PRN PRN Administration Saline Flush - Exam Heart: negative: RRR, no murmur, no gallops, no rubs, normal peripheral pulses, irregular, diminshed peripheral pulses, murmur present, II/IV, III/IV Respiratory: negative: CTAB, no wheezes, no rales, no ronchi, normal chest expansion, no tachypnea, normal percussion, rales, rhonchi, tachypneic, wheezes Gastrointestinal: negative: soft, non-tender, non-distended, normal bowel sounds , no palpable masses, no hepatomegaly, no splenomegaly, no bruit, no guarding, no rigidity, tender to palpation, distended, diminished bowl sounds, voluntary guarding Neurological - other findings: right lower ext weakness, minimal movement of right upper ext Hosp A/P (1) Right sided weakness Code(s): R53.1 - WEAKNESS Status: Acute (2) HLD (hyperlipidemia) Code(s): E78.5 - HYPERLIPIDEMIA, UNSPECIFIED Status: Acute (3) Hypernatremia Code(s): E87.0 - HYPEROSMOLALITY AND HYPERNATREMIA Status: Acute (4) Slurred speech Code(s): R47.81 - SLURRED SPEECH Status: Acute (5) HTN (hypertension) Code(s): I10 - ESSENTIAL (PRIMARY) HYPERTENSION Status: Chronic (6) History of CVA (cerebrovascular accident) Code(s): Z86.73 - PRSNL HX OF TIA (TIA), AND CEREB INFRC W/O RESID DEFICITS Status: Chronic (7) HTN (hypertension) Code(s): I10 - ESSENTIAL (PRIMARY) HYPERTENSION Status: Chronic - Plan pt unable to lie flat per nursing staff for her mri. she does have right sided weakness. she was on asa. will start her on asa/plavix/and continue statin. per nursing she is eating today. will keep evaluating her if she continues to eat then no need for peg. 12/02 family updated about pt's progress. she will need snf. will continue asa/ plavix/statin.
[2019-12-03] MEDS: Atorvastatin Calcium 40 MG TAB PO SCH (21:19)
[2019-12-04 05:58] LABS: Anion Gap 9 mmol/L (10-20); BUN (Urea Nitrogen) 10 mg/dL (9.8-20.1); Calc. Creatinine Clearance 103 mL/min (70-130); Calcium 8.9 mg/dL (7.8-10.44); Carbon Dioxide 30 mmol/L (23-31); Chloride 106 mmol/L (98-107); Estimated GFR-MDRD Greater than 90; Glucose 86 mg/dL (83-110); Potassium 4.1 mmol/L (3.5-5.1); Sodium 141 mmol/L (136-145)
[2019-12-04] MEDS: Enoxaparin Sodium 40 MG/0.4 ML SYRINGE SC SCH (10:05)
[2019-12-04] MEDS: Aspirin 81 mg Enteric Coated Tablet PO SCH (10:06)
[2019-12-04] MEDS: Lisinopril 10 MG TAB PO SCH ×2 (10:06→20:26)
[2019-12-04] MEDS: Amlodipine 5 MG TAB PO SCH ×2 (10:06→20:26)
[2019-12-04] MEDS: Famotidine 20 MG TAB PO SCH ×2 (10:06→20:26)
[2019-12-04] MEDS: Clopidogrel Bisulfate 75 MG TAB PO SCH (10:06)
--- NOTE | 2019-12-04 15:47 | PDOC.HOSPP ---
- Subjective Encounter Date: 12/04/19 Encounter Time: 10:00 Subjective: pt up in bed follows commands - Objective Vital Signs & Weight: Vital Signs (12 hours) Temp Pulse Pulse Resp BP BP BP 12/04/19 11:00 98.4 F 60 16 129/63 12/04/19 10:06 60 118/75 12/04/19 09:10 63 137/76 12/04/19 07:03 98.5 F 60 20 122/62 12/04/19 04:00 98.7 F 60 18 BP Pulse Ox Pulse Ox 12/04/19 11:00 95 12/04/19 10:06 12/04/19 09:10 92 L 12/04/19 07:03 98 12/04/19 04:00 115/56 L 98 Weight Admit Weight 169 lb Weight 169 lb I&O: 12/03/19 12/04/19 12/05/19 06:59 06:59 06:59 Intake Total 900 510 600 Output Total 650 Balance 900 -140 600 Result Diagrams: 11/28/19 03:52 12/04/19 04:47 Hospitalist ROS - Review of Systems Other: unable to obtain - Medication Medications: Active Medications Generic Name Dose Route Start Last Admin Trade Name Freq PRN Reason Stop Dose Admin Acetaminophen 650 mg 11/27/19 23:41 12/01/19 08:47 Tylenol PO 650 mg Q4H PRN Administration Headache/Fever/Mild Pain (1-3) Amlodipine Besylate 5 mg 11/30/19 21:00 12/04/19 10:06 Norvasc PO 5 mg BID YAIR Administration Aspirin 81 mg 12/03/19 09:00 12/04/19 10:06 Ecotrin PO 81 mg DAILY YAIR Administration Atorvastatin Calcium 40 mg 11/29/19 21:00 12/03/19 21:19 Lipitor PO Not Given HS YAIR Clopidogrel Bisulfate 75 mg 12/03/19 09:00 12/04/19 10:06 Plavix PO 75 mg DAILY YAIR Administration Enoxaparin Sodium 40 mg 11/28/19 09:00 12/04/19 10:05 Lovenox SC 40 mg 0900 YAIR Administration Famotidine 20 mg 11/28/19 09:00 12/04/19 10:06 Pepcid PO 20 mg BID YAIR Administration Hydralazine HCl 10 mg 11/27/19 23:32 11/30/19 09:56 Apresoline SLOW IVP 10 mg Q4H PRN Administration BP > 220/110 Dextrose/Sodium Chloride 1,000 mls @ 0 mls/hr 12/01/19 14:16 12/03/19 01:18 D5 1/2 Ns IV 1,000 mls .Q0M YAIR Administration KVO Labetalol HCl 20 mg 11/27/19 23:32 11/30/19 05:22 Normodyne SLOW IVP 20 mg Q1H PRN Administration BP > 220/110 Lisinopril 10 mg 11/29/19 21:00 12/04/19 10:06 Zestril PO 10 mg BID YAIR Administration Potassium Chloride 40 meq 12/01/19 08:00 12/04/19 10:06 Klor-Con PO 40 meq QAM-WM YAIR Administration Quetiapine Fumarate 100 mg 11/29/19 21:00 12/03/19 21:20 Seroquel PO Not Given QPM YAIR Sodium Chloride 10 ml 11/27/19 23:32 11/30/19 09:56 Flush - Normal Saline IVF 10 ml PRN PRN Administration Saline Flush - Exam Heart: negative: RRR, no murmur, no gallops, no rubs, normal peripheral pulses, irregular, diminshed peripheral pulses, murmur present, II/IV, III/IV Respiratory: negative: CTAB, no wheezes, no rales, no ronchi, normal chest expansion, no tachypnea, normal percussion, rales, rhonchi, tachypneic, wheezes Gastrointestinal: negative: soft, non-tender, non-distended, normal bowel sounds , no palpable masses, no hepatomegaly, no splenomegaly, no bruit, no guarding, no rigidity, tender to palpation, distended, diminished bowl sounds, voluntary guarding Extremities: 1+ LE edema Neurological - other findings: right lower ext weakness, right upper ext weakness Hosp A/P (1) Right sided weakness Code(s): R53.1 - WEAKNESS Status: Acute (2) HLD (hyperlipidemia) Code(s): E78.5 - HYPERLIPIDEMIA, UNSPECIFIED Status: Acute (3) Hypernatremia Code(s): E87.0 - HYPEROSMOLALITY AND HYPERNATREMIA Status: Acute (4) Slurred speech Code(s): R47.81 - SLURRED SPEECH Status: Acute (5) HTN (hypertension) Code(s): I10 - ESSENTIAL (PRIMARY) HYPERTENSION Status: Chronic (6) History of CVA (cerebrovascular accident) Code(s): Z86.73 - PRSNL HX OF TIA (TIA), AND CEREB INFRC W/O RESID DEFICITS Status: Chronic (7) HTN (hypertension) Code(s): I10 - ESSENTIAL (PRIMARY) HYPERTENSION Status: Chronic - Plan pt unable to lie flat per nursing staff for her mri. she does have right sided weakness. she was on asa. will start her on asa/plavix/and continue statin. per nursing she is eating today. will keep evaluating her if she continues to eat then no need for peg. 12/02 family updated about pt's progress. she will need snf. will continue asa/ plavix/statin. 12/03 pt eating well today. family called and updated for possible discharge to snf if approved. rn case manager updated.
[2019-12-04] MEDS: Atorvastatin Calcium 40 MG TAB PO SCH (20:27)
[2019-12-05] MEDS: Clopidogrel Bisulfate 75 MG TAB PO SCH (08:35)
[2019-12-05] MEDS: Amlodipine 5 MG TAB PO SCH ×2 (08:35→21:00)
[2019-12-05] MEDS: Lisinopril 10 MG TAB PO SCH ×2 (08:35→21:01)
[2019-12-05] MEDS: Aspirin 81 mg Enteric Coated Tablet PO SCH (08:35)
[2019-12-05] MEDS: Famotidine 20 MG TAB PO SCH ×2 (08:35→20:59)
[2019-12-05] MEDS: Enoxaparin Sodium 40 MG/0.4 ML SYRINGE SC SCH (08:35)
--- NOTE | 2019-12-05 12:46 | PQF ---
CLINICAL DOCUMENTATION IMPROVEMENT CLARIFICATION FORM: ICD-10 Updated PLEASE DO AN ADDENDUM TO THE PROGRESS NOTE WITH ANY DOCUMENTATION UPDATES OR ADDITIONS AND CARRY THROUGH TO DC SUMMARY. THANK YOU. DATE: 12/05/19 ATTN: DR. OCHOA Please exercise your independent, professional judgment in responding to the clarification form. Clinical indicators are provided on the bottom of this form for your review Please check appropriate box(s) to clarify if the following diagnosis has been ruled in or ruled out: CVA [ ] Ruled in diagnosis [ x ] Continue to treat [ ] Resolved [ ] Ruled out diagnosis [ ] Improving [ ] Cannot rule out diagnosis [ ] Other diagnosis [ ] Unable to determine In addition, please specify: Present on Admission (POA): [x ] Yes [ ] No [ ] Unable to determine For continuity of documentation, please document condition throughout progress notes and discharge summary. Thank You. 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 All Rights Reserved [email or web address] IMER
[2019-12-05] MEDS: Atorvastatin Calcium 40 MG TAB PO SCH (20:59)
--- NOTE | 2019-12-06 05:44 | PDOC.HOSPP ---
- Subjective Encounter Date: 12/05/19 Encounter Time: 10:00 Subjective: pt up in bed moves her lower ext on command. - Objective Vital Signs & Weight: Vital Signs (12 hours) Temp Pulse Resp BP BP BP Pulse Ox 12/06/19 04:59 98.6 F 95 18 134/74 94 L 12/06/19 00:35 96.7 F L 90 14 124/67 97 12/05/19 21:01 129/69 12/05/19 21:00 60 129/69 12/05/19 20:55 98.3 F 60 14 129/69 96 12/05/19 20:46 96 Weight Admit Weight 169 lb Weight 169 lb I&O: 12/04/19 12/05/19 12/06/19 06:59 06:59 06:59 Intake Total 500 837 1224 Output Total 650 Balance -194 992 7639 Result Diagrams: 11/28/19 03:52 12/04/19 04:47 Hospitalist ROS - Review of Systems Other: unable to obtain - Medication Medications: Active Medications Generic Name Dose Route Start Last Admin Trade Name Freq PRN Reason Stop Dose Admin Acetaminophen 650 mg 11/27/19 23:41 12/01/19 08:47 Tylenol PO 650 mg Q4H PRN Administration Headache/Fever/Mild Pain (1-3) Amlodipine Besylate 5 mg 11/30/19 21:00 12/05/19 21:00 Norvasc PO 5 mg BID YAIR Administration Aspirin 81 mg 12/03/19 09:00 12/05/19 08:35 Ecotrin PO 81 mg DAILY YAIR Administration Atorvastatin Calcium 40 mg 11/29/19 21:00 12/05/19 20:59 Lipitor PO 40 mg HS YAIR Administration Clopidogrel Bisulfate 75 mg 12/03/19 09:00 12/05/19 08:35 Plavix PO 75 mg DAILY YAIR Administration Enoxaparin Sodium 40 mg 11/28/19 09:00 12/05/19 08:35 Lovenox SC 40 mg 0900 YAIR Administration Famotidine 20 mg 11/28/19 09:00 12/05/19 20:59 Pepcid PO 20 mg BID YAIR Administration Hydralazine HCl 10 mg 11/27/19 23:32 11/30/19 09:56 Apresoline SLOW IVP 10 mg Q4H PRN Administration BP > 220/110 Dextrose/Sodium Chloride 1,000 mls @ 0 mls/hr 12/01/19 14:16 12/03/19 01:18 D5 1/2 Ns IV 1,000 mls .Q0M YAIR Administration KVO Labetalol HCl 20 mg 11/27/19 23:32 11/30/19 05:22 Normodyne SLOW IVP 20 mg Q1H PRN Administration BP > 220/110 Lisinopril 10 mg 11/29/19 21:00 12/05/19 21:01 Zestril PO Not Given BID YAIR Potassium Chloride 40 meq 12/01/19 08:00 12/05/19 08:35 Klor-Con PO 40 meq QAM-WM YAIR Administration Quetiapine Fumarate 100 mg 11/29/19 21:00 12/05/19 21:00 Seroquel PO 100 mg QPM YAIR Administration Sodium Chloride 10 ml 11/27/19 23:32 11/30/19 09:56 Flush - Normal Saline IVF 10 ml PRN PRN Administration Saline Flush - Exam Neck: negative: supple, symmetric, no JVD, no thyromegaly, no lymphadenopathy, no carotid bruit, JVD Respiratory: negative: CTAB, no wheezes, no rales, no ronchi, normal chest expansion, no tachypnea, normal percussion, rales, rhonchi, tachypneic, wheezes Gastrointestinal: negative: soft, non-tender, non-distended, normal bowel sounds , no palpable masses, no hepatomegaly, no splenomegaly, no bruit, no guarding, no rigidity, tender to palpation, distended, diminished bowl sounds, voluntary guarding Neurological: speech deficit Neurological - other findings: unable to move right upper ext. expressive aphasia Hosp A/P (1) Right sided weakness Code(s): R53.1 - WEAKNESS Status: Acute (2) HLD (hyperlipidemia) Code(s): E78.5 - HYPERLIPIDEMIA, UNSPECIFIED Status: Acute (3) Hypernatremia Code(s): E87.0 - HYPEROSMOLALITY AND HYPERNATREMIA Status: Acute (4) Slurred speech Code(s): R47.81 - SLURRED SPEECH Status: Acute (5) HTN (hypertension) Code(s): I10 - ESSENTIAL (PRIMARY) HYPERTENSION Status: Chronic (6) History of CVA (cerebrovascular accident) Code(s): Z86.73 - PRSNL HX OF TIA (TIA), AND CEREB INFRC W/O RESID DEFICITS Status: Chronic (7) HTN (hypertension) Code(s): I10 - ESSENTIAL (PRIMARY) HYPERTENSION Status: Chronic - Plan pt unable to lie flat per nursing staff for her mri. she does have right sided weakness. she was on asa. will start her on asa/plavix/and continue statin. per nursing she is eating today. will keep evaluating her if she continues to eat then no need for peg. 12/02 family updated about pt's progress. she will need snf. will continue asa/ plavix/statin. 12/03 pt eating well today. family called and updated for possible discharge to snf if approved. egg caser updated. 12/04 recommend asa/plavix for 3 months then plavix only. updated on discharge instructions. pt unable to go due to insurance issues. medically stable to be discharged.
[2019-12-06] MEDS: Aspirin 81 mg Enteric Coated Tablet PO SCH ×2 (08:36→11:33)
[2019-12-06] MEDS: Enoxaparin Sodium 40 MG/0.4 ML SYRINGE SC SCH ×2 (08:36→11:33)
[2019-12-06] MEDS: Famotidine 20 MG TAB PO SCH ×3 (08:36→21:17)
[2019-12-06] MEDS: Clopidogrel Bisulfate 75 MG TAB PO SCH ×2 (08:36→11:33)
[2019-12-06] MEDS: Amlodipine 5 MG TAB PO SCH ×3 (08:37→21:17)
[2019-12-06] MEDS: Lisinopril 10 MG TAB PO SCH ×2 (08:40→21:16)
[2019-12-06] MEDS ORDERED: Aspirin 300 MG Suppository PR SCH (11:45)
--- NOTE | 2019-12-06 14:33 | PDOC.HOSPP ---
- Subjective Encounter Date: 12/06/19 Encounter Time: 10:15 Subjective: pt up in bed is awake but does not follow commands. - Objective Vital Signs & Weight: Vital Signs (12 hours) Temp Pulse Pulse Pulse Resp BP BP 12/06/19 11:18 98.5 F 68 16 12/06/19 10:13 116/65 12/06/19 09:28 89 77 116/65 12/06/19 08:40 116/65 12/06/19 07:06 97.8 F 89 16 12/06/19 04:59 98.6 F 95 18 BP BP BP Pulse Ox 12/06/19 11:18 124/68 100 12/06/19 10:13 12/06/19 09:28 118/64 12/06/19 08:40 94 L 12/06/19 07:06 107/81 94 L 12/06/19 04:59 134/74 94 L Weight Admit Weight 169 lb Weight 169 lb I&O: 12/05/19 12/06/19 12/07/19 06:59 06:59 06:59 Intake Total 900 1110 Balance 900 1110 Result Diagrams: 11/28/19 03:52 12/04/19 04:47 Hospitalist ROS - Review of Systems Other: unable to obtain - Medication Medications: Active Medications Generic Name Dose Route Start Last Admin Trade Name Freq PRN Reason Stop Dose Admin Acetaminophen 650 mg 11/27/19 23:41 12/01/19 08:47 Tylenol PO 650 mg Q4H PRN Administration Headache/Fever/Mild Pain (1-3) Amlodipine Besylate 5 mg 11/30/19 21:00 12/06/19 10:13 Norvasc PO Not Given BID [facility] Aspirin 81 mg 12/03/19 09:00 12/06/19 11:33 Ecotrin PO Not Given DAILY [facility] Atorvastatin Calcium 40 mg 11/29/19 21:00 12/05/19 20:59 Lipitor PO 40 mg HS YAIR Administration Clopidogrel Bisulfate 75 mg 12/03/19 09:00 12/06/19 11:33 Plavix PO Not Given DAILY [facility] Enoxaparin Sodium 40 mg 11/28/19 09:00 12/06/19 11:33 Lovenox SC Not Given 0900 [facility] Famotidine 20 mg 11/28/19 09:00 12/06/19 11:34 Pepcid PO Not Given BID YAIR Hydralazine HCl 10 mg 11/27/19 23:32 11/30/19 09:56 Apresoline SLOW IVP 10 mg Q4H PRN Administration BP > 220/110 Dextrose/Sodium Chloride 1,000 mls @ 0 mls/hr 12/01/19 14:16 12/03/19 01:18 D5 1/2 Ns IV 1,000 mls .Q0M YAIR Administration KVO Labetalol HCl 20 mg 11/27/19 23:32 11/30/19 05:22 Normodyne SLOW IVP 20 mg Q1H PRN Administration BP > 220/110 Lisinopril 10 mg 11/29/19 21:00 12/06/19 08:40 Zestril PO Not Given BID YAIR Potassium Chloride 40 meq 12/01/19 08:00 12/06/19 08:36 Klor-Con PO 40 meq QAM-WM YAIR Administration Quetiapine Fumarate 100 mg 11/29/19 21:00 12/05/19 21:00 Seroquel PO 100 mg QPM YAIR Administration Sodium Chloride 10 ml 11/27/19 23:32 11/30/19 09:56 Flush - Normal Saline IVF 10 ml PRN PRN Administration Saline Flush - Exam Heart: negative: RRR, no murmur, no gallops, no rubs, normal peripheral pulses, irregular, diminshed peripheral pulses, murmur present, II/IV, III/IV Respiratory: negative: CTAB, no wheezes, no rales, no ronchi, normal chest expansion, no tachypnea, normal percussion, rales, rhonchi, tachypneic, wheezes Gastrointestinal: negative: soft, non-tender, non-distended, normal bowel sounds , no palpable masses, no hepatomegaly, no splenomegaly, no bruit, no guarding, no rigidity, tender to palpation, distended, diminished bowl sounds, voluntary guarding Neurological - other findings: unable to move her right arm, Hosp A/P (1) Right sided weakness Code(s): R53.1 - WEAKNESS Status: Acute (2) HLD (hyperlipidemia) Code(s): E78.5 - HYPERLIPIDEMIA, UNSPECIFIED Status: Acute (3) Hypernatremia Code(s): E87.0 - HYPEROSMOLALITY AND HYPERNATREMIA Status: Acute (4) Slurred speech Code(s): R47.81 - SLURRED SPEECH Status: Acute (5) HTN (hypertension) Code(s): I10 - ESSENTIAL (PRIMARY) HYPERTENSION Status: Chronic (6) History of CVA (cerebrovascular accident) Code(s): Z86.73 - PRSNL HX OF TIA (TIA), AND CEREB INFRC W/O RESID DEFICITS Status: Chronic (7) HTN (hypertension) Code(s): I10 - ESSENTIAL (PRIMARY) HYPERTENSION Status: Chronic - Plan pt unable to lie flat per nursing staff for her mri. she does have right sided weakness. she was on asa. will start her on asa/plavix/and continue statin. per nursing she is eating today. will keep evaluating her if she continues to eat then no need for peg. 12/02 family updated about pt's progress. she will need snf. will continue asa/ plavix/statin. 12/03 pt eating well today. family called and updated for possible discharge to snf if approved. family service caseworker updated. 12/04 recommend asa/plavix for 3 months then plavix only. updated on discharge instructions. pt unable to go due to insurance issues. medically stable to be discharged. 12/05 awaiting placement. medically stable.
[2019-12-06] MEDS: Atorvastatin Calcium 40 MG TAB PO SCH (21:17)
[2019-12-07] MEDS: Aspirin 81 mg Enteric Coated Tablet PO SCH (08:46)
[2019-12-07] MEDS: Famotidine 20 MG TAB PO SCH (08:46)
[2019-12-07] MEDS: Enoxaparin Sodium 40 MG/0.4 ML SYRINGE SC SCH (08:46)
[2019-12-07] MEDS: Amlodipine 5 MG TAB PO SCH (08:46)
[2019-12-07] MEDS: Lisinopril 10 MG TAB PO SCH (08:46)
[2019-12-07] MEDS: Clopidogrel Bisulfate 75 MG TAB PO SCH (08:47)
[2019-12-07 11:23] VITALS: BP 125/61; TEMP 97.7
--- NOTE | 2019-12-08 05:32 | DIS ---
DATE OF ADMISSION: 11/27/2019 DATE OF DISCHARGE: 12/07/2019 DISCHARGE DIAGNOSES: As of the followin. Cerebrovascular accident. The patient came in with right-sided weakness. 2. Hyperlipidemia. 3. History of cerebrovascular accident with left-sided weakness. 4. Hyponatremia, resolved. 5. Hypertension, next. HOSPITAL COURSE: The patient is a very pleasant 74-year-old female, who initially presented to the hospital on 11/26 with slurred speech and right-sided weakness. The patient has a history of left-sided weakness. At this time, patient was brought into the hospital for further evaluation. She did undergo a CTA head and neck and an echocardiogram. CTA head and neck indicated short-segment mild narrowing on the right carotid bifurcation and proximal internal carotid artery. Also high-grade stenosis involving the left carotid bifurcation was also noted. The patient has significant carotid artery stenosis, however. Per reports daughter declined surgery as there is only 50% chance that it would work. The patient will would not stay still for MRI brain. She did have an echocardiogram, which indicated an EF of 55% to 60% with pacer wires and mild mitral regurgitation, mild tricuspid regurgitation. The patient at this time continued to improve. She did have some weakness to her right lower extremity. 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 She agreed and she recommended just to treat her as a stroke. At this time, she was initially on aspirin and changed to aspirin, Plavix for 3 months, then she will be on Plavix after that. HOME MEDICATIONS: 1. Furosemide 20 mg daily. 2. Lisinopril 10 mg b.i.d. 3. Atorvastatin 40 mg at bedtime. 4. Aspirin 81 mg daily. 5. Seroquel 100 mg q.p.m. 6. Plavix 75 mg daily. 7. Norvasc 5 mg daily. PHYSICAL EXAMINATION: VITAL SIGNS: Temperature of 97.7, 70, 16, 99% on room air, 125/61. GENERAL: She is alert, awake, does not appear in distress. CV: S1, S2 present. No murmurs or gallops. ABDOMEN: Soft, nontender. Bowel sounds present x2. NEUROVASCULAR: Again, she is able to move her lower extremity, not much of her right upper extremity. She is able to move her left upper extremity. The patient will be discharged to a snf facility and follow up with primary as an outpatient. Job ID: [id number]
== END 2019-12-07 13:11 | DRG 64 ==
LOC: ERS 21:01 → OBSVTOIN 22:43 → 2SE 22:43
PROVIDERS: ADMIT Internal Medicine; ATTEND Internal Medicine
DX: I63.9 Cerebral infarction, unspecified (principal); G93.41 Metabolic encephalopathy; G81.91 Hemiplegia, unspecified affecting right dominant side; E87.0 Hyperosmolality and hypernatremia; R29.713 NIHSS score 13; R40.2362 Coma scale, best motor response, obeys commands, at arrival to emergency department; R40.2142 Coma scale, eyes open, spontaneous, at arrival to emergency department; R40.2242 Coma scale, best verbal response, confused conversation, at arrival to emergency department; F20.9 Schizophrenia, unspecified; E78.5 Hyperlipidemia, unspecified; I10 Essential (primary) hypertension; R47.81 Slurred speech; E86.0 Dehydration; E87.6 Hypokalemia; R13.10 Dysphagia, unspecified; E78.00 Pure hypercholesterolemia, unspecified; R40.2134 Coma scale, eyes open, to sound, 24 hours or more after hospital admission; R40.2354 Coma scale, best motor response, localizes pain, 24 hours or more after hospital admission; R40.2234 Coma scale, best verbal response, inappropriate words, 24 hours or more after hospital admission; Z79.899 Other long term (current) drug therapy; Z79.82 Long term (current) use of aspirin; Z95.0 Presence of cardiac pacemaker; Z87.891 Personal history of nicotine dependence; Z86.73 Personal history of transient ischemic attack (TIA), and cerebral infarction without residual deficits
CPT/HCPCS: 36415; 70450; 70496; 70498; 80048; 80061; 82607; 82746; 83735; 83880; 84484; 85025; 93005; 93306; J0360; J1650; J3475; S0028